=== PATIENT | male | born 1950 | race African-American/Black ===

== ENCOUNTER 2018-05-08 09:20 | Outpatient (CLI) | payer MEDICARE ==
[~2018-05-08] VITALS: Ht 172.7 cm; Wt 91.8 kg
--- NOTE | ~2018-05-08 | HEMODYNAMI ---
PATIENT:NOE MARTINEZ MEDICAL RECORD: [id number] : 50 LOCATION:[facility] ADMISSION DATE: 05/08/18 Generatedon:05/08/201811:22 Patient name: NOE MARTINEZ Patient #: [id number] SSN: D OB: 1950 Date of study: 05/08/2018 Page: Of Hemodynamic Procedure Report Patient Data Patient Demographics Procedure consent was obtained First Name: NOE Gender: Male Last Name: MICHELLE : 1950 Patient #: [id number] Age: 67 year(s) Race: Black Additional ID: [id number] Contact details Address: [address] State: [place] City: [place] Zip code: [address] Past Medical History Allergies: No known allergies Admission Admission Data Admission Date: 05/08/2018 Admission Time: 9:20 Height (in.): 68 BSA: 2.06 (m2) Height (cm.): 172.72 BMI: 31.02 (kg/m2) Weight (lbs.): 204 Weight (kg.): 92.53 Lab Results Lab Result Date: 05/08/2018 Lab Result Time: 0:00 CBC Name Units Result Min Max Hemoglobin g/dl 12.7 -*(----)-- 13.5 17.5 Procedure Procedure Types Cath Procedure Diagnostic Procedure [facility] w/Coronaries PCI Procedure Coronary Stent Coronary Stent Initial Procedure Description Procedure Date Procedure Date: 05/08/2018 Procedure Start Time: 10:54 Procedure End Time: 11:17 Procedure Staff Name Function Rich Crawford MD Performing Physician Macrina Sotelo RT Monitor Javi Cabrera RN Nurse Asia Noland RT Scrub Procedure Data Cath Procedure Fluoroscopy Diagnostic fluoroscopy Total fluoroscopy Time: 6.5 time: 6.5 min min Diagnostic fluoroscopy Total fluoroscopy dose: dose: 442.46 mGy 442.46 mGy Contrast Material Contrast Material Type Amount (ml) Isovue 300 105 Entry Location Entry Primary Successful Side Size Upsize Upsize Entry Closure Fontenot ccessful Closure Location (Fr) 1 (Fr) 2 (Fr) Remarks Device Remarks Radial Right 6 Fr Manual artery Short Compression Femoral Right 6 Fr Exoseal artery Short Estimated blood loss: 10 ml Diagnostic catheters Device Type Used For End Catheter Placement DIAGNOSTIC [place] 110cm 5 Procedure Fr catheter ([id number]) DIAGNOSTIC AR2 MOD 5 Fr Procedure catheter ([id number]) Procedure Complications No complications Procedure Medications Medication Administration Route Dosage Oxygen etCO2 Nasal cannula 2 l/min Heparin Flush Bag added to field 2 bags (1000units/500ml NS) 0.9% NaCl I.V. 100 ml/hr Radial Cocktail added to field 1 syringe (Verapomil 2mg/Nitro 400mcg/Heparin 1500units) Fentanyl I.V. 50 mcg Versed I.V. 1 mg Radial Cocktail I.A. 1 syringe (Verapomil 2mg/Nitro 400mcg/Heparin 1500units) Fentanyl I.V. 50 mcg Versed I.V. 1 mg Heparin Bolus I.V. 4000 units Integrilin (Bolus I.V. 8.5 ml 2mg/ml) Plavix P.O. 600 mg Hemodynamics Rest BSA: 2.06 (m2) HGB: 12.7 (g/dl) O2 Consumption: Estimated: 243.25 (ml/min) O2 Co nsumption indexed: Estimated:118.08 (ml/min/m) Heart Rate: 75 (bpm) Snapshots Pre Cath Intra NCS Post Cath Vital Signs Time Heart Resp SPO2 etCO2 NIBP (mmHg) Rhythm Pain Sedation Rate (ipm) (%) (mmHg) Status Level (bpm) 10:24:08 76 16 100 0 133/83(105) NSR 0 (11) 10(A) , No pain 10:28:22 81 16 100 21.2 136/78(102) NSR 0 (11) 10(A) , No pain 10:32:30 74 17 100 21.9 120/77(101) NSR 0 (11) 10(A) , No pain 10:36:40 71 17 100 30.3 106/71(84) NSR 0 (11) 10(A) , No pain 10:40:48 68 17 100 32.5 114/72(84) NSR 0 (11) 10(A) , No pain 10:45:00 69 17 100 31 109/66(84) NSR 0 (11) 10(A) , No pain 10:49:10 67 18 100 31 108/71(84) NSR 0 (11) 10(A) , No pain 10:53:17 64 17 100 31 116/69(86) NSR 0 (11) 10(A) , No pain 10:57:25 72 16 96 29.5 94/55(83) NSR 0 (11) 9(A) , No pain 11:01:37 61 14 95 10.6 64/42(56) NSR 0 (11) 9(A) , No pain 11:05:41 60 16 100 31.8 65/40(51) NSR 0 (11) 9(A) , No pain 11:09:41 60 17 97 31 75/47(62) NSR 0 (11) 9(A) , No pain 11:13:47 60 17 98 27.2 83/46(68) NSR 0 (11) 9(A) , No pain 11:17:54 59 18 98 29.5 78/47(62) NSR 0 (11) 9(A) , No pain 11:22:10 62 18 98 28.7 87/51(61) NSR 0 (11) 9(A) , No pain Medications Time Medication Route Dose Verified Delivered Reason Not es Effectiveness by by 10:29:16 Oxygen etCO2 2 l/min Rich Caldwell Per physician Nasal Ty Cabrera RN cannula 10:29:26 Heparin Flush added 2 bags Rich Caldwell used for Bag to Ty Cabrera RN procedure (1000units/500ml field NS) 10:29:35 0.9% NaCl I.V. 100 Rich Caldwell Per physician ml/hr Ty Cabrera RN 10:29:43 Radial Cocktail added 1 Rich Caldwell used for (Verapomil to syringe Ty Cabrera RN procedure 2mg/Nitro field 400mcg/Heparin 1500units) 10:53:35 Fentanyl I.V. 50 mcg Rich Caldwell for sedation Ty Cabrera RN 10:53:42 Versed I.V. 1 mg Rich Caldwell for sedation Ty Cabrera RN 10:56:04 Radial Cocktail I.A. 1 Rich mcdermott (Verapomil syringe Ty Crawford MD vasodilation 2mg/Nitro 400mcg/Heparin 1500units) 10:56:12 Fentanyl I.V. 50 mcg Rich Caldwell for sedation Ty Cabrera RN 10:56:18 Versed I.V. 1 mg Rich Caldwell for sedation Ty Cabrera RN 11:09:05 Heparin Bolus I.V. 4000 Rich Caldwell for units Ty Cabrera RN anticoagulation 11:09:18 Integrilin I.V. 8.5 ml Rich mcdermott (Bolus 2mg/ml) Ty Cabrera RN antiplatelet therapy 11:17:23 Plavix P.O. 600 mg Rich Caldwell for Ty Cabrera RN antiplatelet therapy Procedure Log Time Note 10:08:27 Javi Cabrera RN sent for patient. Start room use. 10:11:28 Time tracking: Regular hours (M-F 7:00 - 5:00) 10:11:32 Plan of Care:Hemodynamics will remain stable., Cardiac rhythm will remain stable., Comfort level will be maintained., Respiratory function will remain adequate., Patient/ family verbilizes understanding of procedure., Procedure tolerated without complication., Recovers from procedure without complications.. 10:13:15 Patient Height : 68 inches 10:13:18 Patient Weight : 204 lbs 10:13:28 Patient allergic to No known allergies 10:17:11 Patient received from Pre/Post Procedure Room to CCL 3 Alert and oriented. Tansferred to table in Supine position. 10:17:14 Warm blankets applied, and iram hugger turned on for patient comfort. 10:17:15 Correct patient and procedure confirmed by team. 10:17:16 Signed procedure consent form obtained from patient. 10:17:21 ECG and BP/O2 sat monitors applied to patient. 10:23:09 Vital chart was started 10:29:16 Oxygen 2 l/min etCO2 Nasal cannula was administered by Javi Cabrera RN; Per physician; 10:29:26 Heparin Flush Bag (1000units/500ml NS) 2 bags added to field was administered by Javi Caberra RN; used for procedure; 10:29:35 0.9% NaCl 100 ml/hr I.V. was administered by Javi Cabrera RN; Per physician; 10:29:43 Radial Cocktail (Verapomil 2mg/Nitro 400mcg/Heparin 1500units) 1 syringe added to field was administered by Javi Cabrera RN; used for procedure; 10:30:36 Baseline sample Acquired. 10:30:58 Rhythm: sinus rhythm 10:30:59 Full Disclosure recording started 10:31:21 H&P Date Dictated: 05/02/2018 Within 30 days and on chart., H&P Addendum completed by physician on day of procedure. (MUST COMPLETE FOR ALL OUTPATIENTS). 10:31:22 Pre-procedure instructions explained to patient. 10:31:22 Pre-op teaching completed and patient verbalized understanding. 10:31:24 Family in patients room. 10:31:25 Patient NPO since Midnight. 10:31:33 Is patient on blood thinner?No 10:31:34 Patient diabetic? Yes. 10:31:35 If diabetic: On Metformin? Yes 10:31:37 If on Metformin: Last Dose? 05/06/2018 10:31:40 Previous problem with sedation/anesthesia? No ? 10:31:41 Snore? No 10:31:42 Sleep apnea? No 10:31:43 Deviated septum? No 10:31:44 Opens mouth fully? Yes 10:31:45 Sticks out tongue? Yes 10:31:46 Airway obstruction? No ? 10:31:53 Dentures? No NO TEETH 10:31:56 Modified Rocky's test Ulnar < 7 seconds 10:32:01 Patient pain scale 0/10 ?. 10:32:06 IV patent on arrival in left hand with 0.9% NaCl at O. 10:32:57 Right Radial & Right Groin area was prepped with chlora-prep and draped in sterile fashion 10:33:20 Lab Result : Hemoglobin 12.7 g/dl 10:41:26 Zero performed for pressure channel P1 10:53:23 --------ALL STOP TIME OUT------ 10:53:23 Final Timeout: patient, procedure, and site verified with staff and physician. All members of the team are in agreement. 10:53:25 Right Radial & Right Groin site verified by team. 10:53:28 Physical assessment completed. ASA score P 2 - A patient with mild systemic disease as per Rich Crawford MD. 10:53:31 Sedation plan: IV Moderate Sedation Medication:Versed, Fentanyl 10:53:35 Fentanyl 50 mcg I.V. was administered by Javi Cabrera RN; for sedation; 10:53:42 Versed 1 mg I.V. was administered by Javi Cabrera RN; for sedation; 10:54:32 Procedure started. 10:54:41 Local anesthetic to right radial artery with Lidocaine 2% by Rich Crawford MD.INITIAL ACCESS ONLY 10:55:23 A 6 Fr Short sheath was inserted into the Right Radial artery 10:55:30 Use device set Radial Dx or PCI 10:55:32 ACIST Syringe (20266) opened to sterile field. 10:55:32 Bag Decanter (2002S) opened to sterile field. 10:55:34 ACIST Manifold (38181) opened to sterile field. 10:55:35 ACIST Hand Control (09217) opened to sterile field. 10:55:38 Medline Cath Pack ([id number]) opened to sterile field. 10:55:39 DIAGNOSTIC WIRE .035 260cm J wire (884623) opened to sterile field. 10:55:39 Tegaderm 4 x 4 (1626W) opened to sterile field. 10:55:41 SHEATH 6FR Slender (57-3990) opened to sterile field. 10:55:51 A DIAGNOSTIC [place] 110cm 5 Fr catheter (398137) was advanced over the wire and used for Procedure. 10:56:04 Radial Cocktail (Verapomil 2mg/Nitro 400mcg/Heparin 1500units) 1 syringe I.A. was administered by Rich Crawford MD; for vasodilation; 10:56:12 Fentanyl 50 mcg I.V. was administered by Javi Cabrera RN; for sedation; 10:56:18 Versed 1 mg I.V. was administered by Javi Cabrera RN; for sedation; 10:57:12 LV gram done using TEE 10:57:15 Injector settings: Ml/sec: 5, Volume: 15, 10:57:26 EF : 40 % 10:58:11 Catheter removed. 10:58:59 A DIAGNOSTIC AR2 MOD 5 Fr catheter ([id number]) was advanced over the wire and used for Procedure. 11:00:14 UNABLE TO ENGAGE RCA 11:00:15 Catheter removed. 11:01:32 GUIDE 6FR HS II catheter (TR0LQIY) opened to sterile field. 11:01:41 6 Fr HS2 guide catheter was inserted over the wire 11:02:06 UNABLE TO ENGAGE 11:02:09 Catheter removed. 11:02:21 WILL PROCEED TO FEMEROL APPROACH 11:02:28 SHEATH 6FR [place] (RUL886) opened to sterile field. 11:02:33 Local anesthetic to right femoral artery with Lidocaine 2% by Rich Crawford MD.ADDITIONAL ACCESS 11:03:04 A 6 Fr Short sheath was inserted into the Right Femoral artery 11:04:33 GUIDE 6FR XBLAD 3.5 catheter ([id number]) opened to sterile field. 11:04:43 6 Fr XBLAD 3.5 guide catheter was inserted over the wire 11:05:50 LCA angiography performed. 11:05:59 Guide catheter removed. 11:06:10 INFLATOR Merit BasixCompak (BA2735) opened to sterile field. 11:06:18 CHOICE PT Extra Support 182cm wire ([id number]) opened to sterile field. 11:06:40 6 Fr HS 2 guide catheter was inserted over the wire 11:07:11 RCA angiography performed. 11:07:22 Guide catheter removed. 11:07:31 GUIDE 6FR HS II SH catheter ([id number]) opened to sterile field. 11:08:01 6 Fr HS 2 SH guide catheter was inserted over the wire 11:09:05 Heparin Bolus 4000 units I.V. was administered by Javi Cabrera RN; for anticoagulation; 11:09:18 Integrilin (Bolus 2mg/ml) 8.5 ml I.V. was administered by Javi Cabrera RN; for antiplatelet therapy; 11:10:11 Inflate balloon Inflation number: 1 A EUPHORA 2.0 x 15 Balloon ([id number]) was prepped and advanced across the Prox RCA, then inflated to 11 DEN for 0:10 (min:sec). 11:10:24 Inflation number: 2 The EUPHORA 2.0 x 15 Balloon ([id number]) was reinflated across the Prox RCA, to 11 DEN for 0:10 (min:sec). 11:10:32 Inflation number: 3 The EUPHORA 2.0 x 15 Balloon ([id number]) was reinflated across the Prox RCA, to 11 DEN for 0:00 (min:sec). 11:11:04 Balloon removed over the wire. 11:12:49 Place stent Inflation Number: 4 A KOKO RX 2.0 x 15 stent ([id number]) was prepped and advanced across the Prox RCA. The stent was deployed at 13 DEN for 0:10 (min:sec). 11:13:15 Stent catheter was removed intact over wire. 11:13:15 Wire removed. 11:13:16 Guide catheter removed. 11:13:28 EXOSEAL 6Fr (EX600) opened to sterile field. 11:13:30 TR BAND Standard ([id number]) opened to sterile field. 11:13:40 Sheath removed intact; hemostasis achieved with Exoseal to the Right Femoral artery. 11:15:36 Sheath removed intact; hemostasis achieved with Manual Compression to the Right Radial artery. 11:15:39 Procedure ended.(Physican Out) 11:15:54 Fluoroscopy time 06.50 minutes. 11:16:04 Fluoroscopy dose: 442.46 mGy 11:16:04 Flurop Dose total: 442.46 11:16:07 Contrast amount:Isovue 300 105ml. 11:16:08 Sharps counted by scrub and verified by R.N. 11:16:10 TR band inflated with 10cc of air. 11:16:13 Post-op/insertion site Right Femoral artery dressed using a 4 x 4 and Tegaderm. 11:16:18 Post-procedure physical assessment completed. ASA score P 2 - A patient with mild systemic disease as per Rich Crawford MD. 11:16:22 Post procedure rhythm: sinus bradycardia 11:16:24 Estimated blood loss: 10 ml 11:16:25 Post procedure instruction explained to patient.Patient verbalizes understanding. 11:16:26 Patient needs reinforcement of post procedure teaching. 11:16:42 Procedure type changed to Cath procedure, Diagnostic procedure, LHC, LHC w/Coronaries, PCI procedure, Coronary Stent, Coronary Stent Initial 11:17:16 Procedure and supply charges have been captured, reviewed, submitted and are correct. 11:17:17 Procedure Complication : No complications 11:17:20 Vital chart was stopped 11:17:20 See physician's report for complete and final results. 11:17:22 Report given to Pre/Post Procedure Room. 11:: Plavix 600 mg P.O. was administered by Javi Cabrera RN; for antiplatelet therapy; 11:17:24 Patient transfered to Pre/Post Procedure Room with Bed. :: Procedure ended. Full Disclosure recording stopped 11::31 End room use (Document Last) Intervention Summary Intervention Notes Time ActionType Lesion and Equipment Used Action# Pressure Duration Attributes 11:10:11 Inflate Prox RCA EUPHORA 2.0 x 1 11 00:10 balloon 15 Balloon ([id number]) 11:10:24 Reinflate Prox RCA EUPHORA 2.0 x 2 11 00:10 balloon 15 Balloon ([id number]) 11:10:32 Reinflate Prox RCA EUPHORA 2.0 x 3 11 00:00 balloon 15 Balloon ([id number]) 11:12:49 Place stent Prox RCA KOKO RX 2.0 x 4 13 00:10 15 stent ([id number]) Device Usage Item Name Manufacture Quantity Catalog Number Hospital Part Current M inimal Lot# / Charge Number Stock Stock Serial# Code ACIST Syringe Acist 1 38660 740222 614561 490063 2 0 (77044) Medical Systems Inc Bag Decanter Microtek 1 2001S 535257 37349 712714 5 (2001S) Medical Inc. ACIST Manifold Acist 1 01602 975359 519354 784762 5 (76212) Medical Systems Inc ACIST Hand Acist 1 50175 255880 269536 791252 5 Control Medical (03978) Systems Inc Medline Cath Medline 1 [id number] 280397 46695 880680 5 Pack ([id number]) DIAGNOSTIC [facility] Daniel 1 175098 987998 789912 294798 3 0 WIRE .035 260cm J wire (909569) Tegaderm 4 x 4 3M 1 1626W 442689 578870 027989 5 (1626W) SHEATH 6FR Terumo 1 [id number] 649685 203339 788038 5 Slender (80-1060) DIAGNOSTIC Terumo 1 40-3548 033996 413926 515338 5 [place] 110cm 5 Fr catheter (351851) DIAGNOSTIC AR2 Cardinal 1 [id number] 955272 287981 629992 2 0 MOD 5 Fr Health catheter (117198D) GUIDE 6FR HS Medtronic 1 KN2XELQ 181708 14329 094804 1 II catheter ([id number]) SHEATH 6FR Terumo 1 EBQ302 739300 045574 057534 4 0 Tomball (GSG198) GUIDE 6FR Cardinal 1 [id number] 844961 682961 931201 1 0 XBLAD 3.5 Health catheter (78258730) INFLATOR Merit Merit 1 PC3064 249826 462791 988645 1 5 HLH ELECTRONICSctErly (ZP1456) CHOICE PT [place] 1 [id number] 196570 475292 174971 5 Extra Support Scientific 182cm wire ([id number]) GUIDE 6FR HS Medtronic 1 [id number] 972246 36578 757571 1 II SH catheter ([id number]) EUPHORA 2.0 x Medtronic 1 [id number] 272874 713448 576792 5 [id number] 15 Balloon (SRY8878V) KOKO RX 2.0 x Medtronic 1 [id number] 178332 2642751 305825 5 [id number] 15 stent ([id number]) EXOSEAL 6Fr Cardinal 1 EX600 637416 657091 026749 1 0 (EX600) Health TR BAND Terumo 1 [id number] 317800 376542 638619 4 0 Standard ([id number]) Signature Audit Thornton Stage Time Signature Unsigned Intra-Procedure 05/08/2018 Macrina Sotelo 11:22:33 AM RT(R) Signatures Monitor : Macrina Sotelo Signature : RT Date : Time : [facility] [address] [place] [address]
--- NOTE | ~2018-05-08 | OP ---
PATIENT NAME: NOE MARTINEZ MEDICAL RECORD: [id number] :50 LOCATION:[facility] ADMISSION DATE: SURGEON: JOSH SEYMOUR MD DATE OF OPERATION: 05/08/2018 PROCEDURES: 1. PTCA stent RCA. 2. Left heart catheterization. 3. Selective coronary angiography. 4. Left ventriculogram. INDICATION: Angina and coronary artery disease. PROCEDURE IN DETAIL: After informed consent was obtained and after a detailed description of risks, benefits as well as alternative therapies, the patient elected to proceed with angiogram and angioplasty. The right femoral area was prepped and draped in normal sterile fashion. Right femoral artery was cannulated via modified Seldinger technique with placement of 6-[place] sheath. All catheters exchanged through this sheath. FINDINGS: The left ventriculogram was performed in standard 30-degree TEE view, reveals global hypokinesis throughout all segments. Overall ejection fraction in the 35% to 40% range. SELECTIVE CORONARY ANGIOGRAPHY: 1. Left main has no significant angiographic disease. 2. Left anterior descending has 90% stenosis in the mid distal vessel. 3. Left circumflex has moderate irregularities, but no flow-limiting stenosis. 4. The right coronary artery has 99% stenosis in the mid vessel. PTCA STENT OF THE RCA: The stent used was a 2.0 x 15 mm Jose Manuel. Result was 0% residual stenosis. OVERALL IMPRESSION: Successful percutaneous transluminal coronary angioplasty stent of the right coronary artery going from 99% initial stenosis to 0% residual. PLAN: For PTCA stent of the LAD in the near future. TRANSINT:[id number] Voice Confirmation ID: [id number] DOCUMENT ID: [id number] JOSH SEYMOUR MD at 1228 CC: [id number] DICTATION DATE: 05/08/18 1119 FACTORER: 05/08/18 1150 DEP CLI 05/08/18 [place] [address]
[2018-05-08] MEDS ORDERED: NORCO 7.5/325 T1 TA1 PO (09:40)
[2018-05-08] MEDS ORDERED: AMOXICILLIN875 MG PO (09:40)
[2018-05-08] MEDS ORDERED: METFORMIN HCL500 M1 PO (09:44)
[2018-05-08] MEDS ORDERED: COZAAR100 MG PO (09:46)
[2018-05-08] MEDS ORDERED: GLIMEPIRIDE2 MG PO (09:46)
[2018-05-08] MEDS ORDERED: HYDROCHLOROTHIA25 MG PO (09:47)
[2018-05-08] MEDS ORDERED: NORVASC10 MG PO (09:48)
[2018-05-08 09:54] VITALS: BP 141/73; Ht 172.7 cm; Wt 91.8 kg
[2018-05-08 10:18] LABS: BASOPHILS 0.5 % (0-2); EOSINOPHILS 2.6 % (0-7); HEMATOCRIT 38.1 % (42.0-54.0); HEMOGLOBIN 12.7 g/dL (13.5-17.5); IMMATURE GRANULOCYTES 0.2 % (0-5); LYMPHOCYTES 33.3 % (15-50); MCH 26.1 pg (26.0-34.0); MCHC 33.3 g/dL (31.0-37.0); MCV 78.4 fL (80.0-100.0); MEAN PLATELET VOLUME 9.9 fL (7.4-10.4); MONOCYTES 9.3 % (2-11); NEUTROPHILS 54.1 % (40-80); PLATELET COUNT 361 10x3/uL (130-400); RBC 4.86 10x6/uL (4.20-6.10); RDW 14.7 % (11.5-14.5); WBC 5.5 10x3/uL (4.8-10.8)
[2018-05-08 10:33] LABS: ANION GAP 13.6 mmol/L (8-16); CALCIUM 9.1 mg/dL (8.5-10.1); CARBON DIOXIDE 26.3 mmol/L (21.0-32.0); CREATININE - SERUM 2.2 mg/dL (0.6-1.3); POTASSIUM - SERUM 3.9 mmol/L (3.5-5.1)
[2018-05-08] MEDS ORDERED: PLAVIX75 MG PO (11:36)
[2018-05-08] MEDS ORDERED: BAYER CHEWABLE81 MG PO (11:36)
== END 2018-05-08 15:35 | disposition home or self-care (01) ==
LOC: D.CATH 09:20 → EDBD 09:20 → D.CATH 11:00
PROVIDERS: Internal Medicine Interventional Cardiology
DX: I25.119 Atherosclerotic heart disease of native coronary artery with unspecified angina pectoris (principal); Z01.812 Encounter for preprocedural laboratory examination
CPT/HCPCS: 93458; C9600

== ENCOUNTER 2018-05-12 09:04 | Outpatient (CLI) | payer MEDICARE ==
[~2018-05-12] VITALS: Ht 172.7 cm; Wt 91.8 kg
--- NOTE | ~2018-05-12 | HP ---
PATIENT: NOE MARTINEZ MEDICAL RECORD: [id number] ACCOUNT: [id number] LOCATION:[facility] : 50 ADMISSION DATE: 05/12/18 PCP: MARTIN WANG MD HISTORY AND PHYSICAL EXAMINATION ADMITTING DIAGNOSES: 1. Angina. 2. Coronary artery disease. 3. Recent PTCA and stent of the RCA with concomitant disease of LAD. HISTORY OF PRESENT ILLNESS: Mr. Martinez presents with anginal symptomatology, found to have 2-vessel disease. Underwent successful PTCA and stent of the RCA. He is now brought back for PTCA and stent of the LAD. PHYSICAL EXAMINATION: GENERAL APPEARANCE: Well-nourished, well-developed, appears stated age. Level of distress, comfortable. PSYCHIATRIC: Mental status, alert, normal affect. Orientation, oriented to time, place and person. EYES: Lids and conjunctiva, noninjected. No discharge, no pallor. ENT: Lips, teeth, gums, normal dentition. Oropharynx, no cyanosis, no pallor. NECK: Carotid arteries, bilateral normal upstroke, no bruits, no thrills. JUGULAR VEINS: No jugular venous pressure or distention. CERVICAL LYMPH NODES: Nontender, nonenlarged. THYROID: Not enlarged. Nontender. No nodules. LUNGS: Respiratory effort, unlabored. CHEST: Normal curvature. No thoracic deformity. No chest wall tenderness. Percussion, resonant. Auscultation, clear. No wheezes, no rales, no rhonchi. CARDIOVASCULAR: Precordial exam, nondisplaced. No heaves or pericardial thrills. Rate and rhythm, regular. Heart sounds, normal S1, normal S2. No S3, no gallop, no rub. Systolic murmur, not heard. Diastolic murmur, not heard. EXTREMITIES: No cyanosis, no edema. Peripheral pulses, full and equal in all extremities, except as noted. No bruits appreciated. ABDOMEN: Soft, nondistended. Normal aorta. No bruit. Nontender. No masses. Liver, nontender, no hepatomegaly. Spleen, nontender, no splenomegaly. MUSCULOSKELETAL: No joint tenderness. No joint swelling. No erythema. NEUROLOGICAL: Normal gait, normal strength, normal tone. SKIN: Warm and dry. OVERALL IMPRESSION: Anginal symptomatology with significant disease of the LAD. We will proceed with transcatheter revascularization of the LAD. TRANSINT:[id number] Voice Confirmation ID: [id number] DOCUMENT ID: [id number] JOSH SEYMOUR MD at 0941 CC: [id number] DICTATION DATE: 05/12/18917 SUPERVISOR STAGE CARPENTRY: 05/12/18 09 REG [facility] [address] [place] [id number]
--- NOTE | ~2018-05-12 | HEMODYNAMI ---
PATIENT:NOE MARTINEZ MEDICAL RECORD: [id number] : 50 LOCATION:DPATRICIA ADMISSION DATE: 05/12/18 Generatedon:05/12/201812:56 Patient name: NOE MARTINEZ Patient #: [id number] SSN: D OB: 1950 Date of study: 05/12/2018 Page: Of Hemodynamic Procedure Report Patient Data Patient Demographics Procedure consent was obtained First Name: NOE Gender: Male Last Name: MICHELLE : 1950 Patient #: [id number] Age: 67 year(s) Race: Black Additional ID: [id number] Contact details Address: [address] State: [place] City: [place] Zip code: [address] Past Medical History Allergies: No known allergies Admission Admission Data Admission Date: 05/12/2018 Admission Time: 9:04 Lab Results Lab Result Date: 05/08/2018 Lab Result Time: 0:00 CBC Name Units Result Min Max Hemoglobin g/dl 12.7 -*(----)-- 13.5 17.5 Procedure Procedure Types Cath Procedure PCI Procedure Coronary Stent Coronary Stent Initial Procedure Description Procedure Date Procedure Date: 05/12/2018 Procedure Start Time: 12:40 Procedure End Time: 12:53 Procedure Staff Name Function Rich Crawford MD Performing Physician Peter Mederos RT Monitor Javi Cabrera RN Nurse Romero Cedeño RT Scrub Procedure Data Cath Procedure Fluoroscopy Diagnostic fluoroscopy Total fluoroscopy Time: 2.4 time: 2.4 min min Diagnostic fluoroscopy Total fluoroscopy dose: 182 dose: 182 mGy mGy Contrast Material Contrast Material Type Amount (ml) Isovue 300 73 Entry Location Entry Primary Successful Side Size Upsize Upsize Entry Closure Succes sful Closure Location (Fr) 1 (Fr) 2 (Fr) Remarks Device Remarks Femoral Right 6 Fr Exoseal artery Short Estimated blood loss: 10 ml Procedure Complications No complications Procedure Medications Medication Administration Route Dosage Oxygen etCO2 Nasal cannula 2 l/min Heparin Flush Bag added to field 2 bags (1000units/500ml NS) 0.9% NaCl I.V. 100 ml/hr Fentanyl I.V. 50 mcg Versed I.V. 1 mg Fentanyl I.V. 50 mcg Versed I.V. 1 mg Heparin Bolus I.V. 4000 units Hemodynamics Rest HGB: 12.7 (g/dl) Heart Rate: 58 (bpm) Snapshots Pre Cath Intra NCS Post Cath Vital Signs Time Heart Resp SPO2 etCO2 NIBP (mmHg) Rhythm Pain Sedation Rate (ipm) (%) (mmHg) Status Level (bpm) 12:27:18 75 16 100 0 138/92(127) NSR 0 (11) 10(A) , No pain 12:31:36 69 16 98 0 147/81(120) NSR 0 (11) 10(A) , No pain 12:35:52 61 16 100 11.2 128/75(109) NSR 0 (11) 10(A) , No pain 12:40:10 66 17 100 2.2 116/74(88) NSR 0 (11) 9(A) , No pain 12:44:22 63 16 100 11.1 121/78(108) NSR 0 (11) 9(A) , No pain 12:48:38 67 17 100 11.1 129/72(104) NSR 0 (11) 9(A) , No pain 12:52:52 64 15 100 7.4 127/76(96) NSR 0 (11) 9(A) , No pain Medications Time Medication Route Dose Verified Delivered Reason Notes Effectiveness by by 12:30:43 Oxygen etCO2 2 Rich Caldwell Per physician Nasal l/min Ty Cabrera RN cannula 12:30:51 Heparin Flush added 2 Rich Caldwell used for Bag to bags Ty Cabrera RN procedure (1000units/500ml field NS) 12:31:01 0.9% NaCl I.V. 100 Rich Caldwell Per physician ml/hr Ty Cabrera RN 12:35:47 Fentanyl I.V. 50 Rich Caldwell for sedation mcg Ty Cabrera RN 12:35:54 Versed I.V. 1 mg Rich Caldwell for sedation Ty Cabrera RN 12:39:29 Fentanyl I.V. 50 Rich Caldwell for sedation mcg Ty Cabrera RN 12:39:33 Versed I.V. 1 mg Rich mcdermott sedation Ty Cabrera RN 12:42:25 Heparin Bolus I.V. 4000 Rich Caldwell for units Ty Cabrera RN anticoagulation Procedure Log Time Note 12:00:10 Peter Mederos RT(R) sent for patient. Start room use. 12:06:11 Time tracking: Regular hours (M-F 7:00 - 5:00) 12:06:15 Plan of Care:Hemodynamics will remain stable., Cardiac rhythm will remain stable., Comfort level will be maintained., Respiratory function will remain adequate., Patient/ family verbilizes understanding of procedure., Procedure tolerated without complication., Recovers from procedure without complications.. 12:08:12 Procedure type changed to Cath procedure, PCI procedure, Coronary Stent, Coronary Stent Initial 12:20:04 Patient received from Pre/Post Procedure Room to CCL 3 Alert and oriented. Tansferred to table in Supine position. 12:20:05 Correct patient and procedure confirmed by team. 12:20:05 Warm blankets applied, and iram hugger turned on for patient comfort. 12:20:07 ECG and BP/O2 sat monitors applied to patient. 12:20:07 Signed procedure consent form obtained from patient. 12:26:08 Vital chart was started 12:30:43 Oxygen 2 l/min etCO2 Nasal cannula was administered by Javi Cabrera RN; Per physician; 12:30:51 Heparin Flush Bag (1000units/500ml NS) 2 bags added to field was administered by Javi Cabrera RN; used for procedure; 12:31:01 0.9% NaCl 100 ml/hr I.V. was administered by Javi Cabrera RN; Per physician; 12:34:02 Baseline sample Acquired. 12:34:05 Rhythm: sinus bradycardia 12:34:07 Full Disclosure recording started 12:34:11 H&P Date Dictated: 05/12/2018 New H&P dictated by physician.. 12:34:11 Pre-procedure instructions explained to patient. 12:34:12 Pre-op teaching completed and patient verbalized understanding. 12:34:13 Family in patients room. 12:34:14 Patient NPO since Midnight. 12:34:16 Is the patient allergic to Iodine/contrast media? No. 12:34:18 Is patient on blood thinner?Yes 12:34:20 ACC The patient was administered the following blood thiners within the last 24 hours: ACCPlavix 12:34:22 Patient diabetic? Yes. 12:34:49 If diabetic: On Metformin? Yes 12:34:54 If on Metformin: Last Dose? 05/01/2018 12:34:56 Previous problem with sedation/anesthesia? No ? 12:34:57 Snore? Yes 12:34:59 Sleep apnea? No 12:35:00 Deviated septum? No 12:35:01 Opens mouth fully? Yes 12:35:01 Sticks out tongue? Yes 12:35:08 Airway obstruction? No ? 12:35:14 Dentures? No no teeth 12:35:17 Pre procedure: right dorsailis pedis pulse 1+ Palpable, but thready & weak; easily obliterated 12:35:20 Patient pain scale 0/10 ?. 12:35:24 IV patent on arrival in left forearm with 0.9% NaCl at O. 12:35:26 Lab results completed and on chart. 12:35:29 Right groin area was prepped with chlora-prep and draped in sterile fashion 12:35:30 Alarms reviewed by R. N. 12:35:30 Sharps counted by scrub and verified by R.N. 12:35:31 --------ALL STOP TIME OUT------ 12:35:35 Final Timeout: patient, procedure, and site verified with staff and physician. All members of the team are in agreement. 12:35:38 Right groin site verified by team. 12:35:40 Physical assessment completed. ASA score P 2 - A patient with mild systemic disease as per Rich Crawford MD. 12:35:43 Sedation plan: IV Moderate Sedation Medication:Versed, Fentanyl 12:35:47 Fentanyl 50 mcg I.V. was administered by Javi Cabrera RN; for sedation; 12:35:54 Versed 1 mg I.V. was administered by Javi Cabrera RN; for sedation; 12:36:45 Use device set Radial Dx or PCI 12:36:48 Use device set TAUTH PCI 12:36:52 Tegaderm 4 x 4 (1626W) opened to sterile field. 12:36:53 ACIST Manifold (64428) opened to sterile field. 12:36:54 ACIST Hand Control (04142) opened to sterile field. 12:36:59 ACIST Syringe (14019) opened to sterile field. 12:36:59 Medline Cath Pack ([id number]) opened to sterile field. 12:37:01 Bag Decanter (2002S) opened to sterile field. 12:37:01 DIAGNOSTIC WIRE .035 260cm J wire (039994) opened to sterile field. 12:37:04 INFLATOR Merit BasixCompak (OZ2286) opened to sterile field. 12:37:06 CHOICE PT Extra Support 182cm wire ([id number]) opened to sterile field. 12:37:08 GUIDE 6FR XBLAD 3.5 catheter ([id number]) opened to sterile field. 12:37:11 SHEATH 6FR Huntley (WFD489) opened to sterile field. 12:39:29 Fentanyl 50 mcg I.V. was administered by Javi Cabrera RN; for sedation; 12:39:33 Versed 1 mg I.V. was administered by Javi Cabrera RN; for sedation; 12:40:23 Procedure started. 12:40:26 Local anesthetic to right femoral artery with Lidocaine 2% by Rich Crawford MD.INITIAL ACCESS ONLY 12:41:12 Zero performed for pressure channel P1 12:41:15 Zero performed for pressure channel P1 12:41:17 Zero performed for pressure channel P1 12:41:20 Zero performed for pressure channel P1 12:42:08 A 6 Fr Short sheath was inserted into the Right Femoral artery 12:42:25 Heparin Bolus 4000 units I.V. was administered by Javi Cabrera RN; for anticoagulation; 12:42:39 6 Fr XBLAD 3.5 guide catheter was inserted over the wire 12:42:59 CPTXS wire advanced. 12:43:08 Wire advanced across lesion. 12:44:41 Place stent Inflation Number: 1 A KOKO RX 2.5 x 12 stent ([id number]) was prepped and advanced across the Dist LAD. The stent was deployed at 11 DEN for 0:10 (min:sec). 12:44:59 Stent catheter was removed intact over wire. 12:46:07 Place stent Inflation Number: 1 A KOKO RX 3.0 x 15 stent ([id number]) was prepped and advanced across the Mid LAD. The stent was deployed at 13 DEN for 0:10 (min:sec). 12:47:08 Stent catheter was removed intact over wire. 12:47:09 Wire removed. 12:47:10 Guide catheter removed. 12:47:13 EXOSEAL 6Fr (EX600) opened to sterile field. 12:47:31 Sheath removed intact; hemostasis achieved with Exoseal to the Right Femoral artery. 12:47:33 Procedure ended.(Physican Out) 12:51:48 Fluoroscopy time 02.40 minutes. 12:51:53 Fluoroscopy dose: 182 mGy 12:51:53 Flurop Dose total: 182 12:51:58 Contrast amount:Isovue 300 73ml. 12:52:00 Sharps counted by scrub and verified by R.N. 12:52:02 Insertion/operative site no bleeding no hematoma. 12:52:05 Post-op/insertion site Right Femoral artery dressed using a 4 x 4 and Tegaderm. 12:52:06 Post Procedure Pulses reassessed and unchanged 12:52:09 Post-procedure physical assessment completed. ASA score P 2 - A patient with mild systemic disease as per Rich Crawford MD. 12:52:11 Post procedure rhythm: unchanged. 12:52:14 Estimated blood loss: 10 ml 12:52:15 Post procedure instruction explained to patient.Patient verbalizes understanding. 12:52:15 Patient needs reinforcement of post procedure teaching. 12:52:20 Procedure and supply charges have been captured, reviewed, submitted and are correct. 12:52:23 Procedure Complication : No complications 12:52:42 Vital chart was stopped 12:52:43 See physician's report for complete and final results. 12:52:47 Report given to Pre/Post Procedure Room. 12:52:50 Patient transfered to Pre/Post Procedure Room with Stretcher. 12:53:00 Procedure ended. 12:53:00 Full Disclosure recording stopped 12:54:22 End room use (Document Last) Intervention Summary Intervention Notes Time ActionType Lesion and Equipment Used Action# Pressure Duration Attributes 12:44:41 Place stent Dist LAD KOKO RX 2.5 x 1 11 00:10 12 stent ([id number]) 12:46:07 Place stent Mid LAD KOKO RX 3.0 x 1 13 00:10 15 stent ([id number]) Device Usage Item Name Manufacture Quantity Catalog Number Hospital Part Current M inimal Lot# / Charge Number Stock Stock Serial# Code Tegaderm 4 x 4 3M 1 1626W [id number] 372039 914226 5 (1626W) ACIST Manifold Acist 1 15931 939379 730929 887691 5 (06650) Medical Systems Inc ACIST Hand Acist 1 45313 249726 177745 146105 5 Control Medical (03551) Systems Inc ACIST Syringe Acist 1 63549 162531 907741 344413 2 0 (48771) Medical Systems Inc Medline Cath Medline 1 [id number] 512781 19304 578368 5 Pack ([id number]) Bag Decanter Microtek 1 2001S 068391 63091 685635 5 (2001S) Medical Inc. DIAGNOSTIC St Daniel 1 389017 758637 682329 673379 3 0 WIRE .035 260cm J wire (802172) INFLATOR Merit Merit 1 EU7493 031305 756250 829200 1 5 maniaTV Medical (BU9255) CHOICE PT [place] 1 [id number] 988817 180956 628569 5 Extra Support Scientific 182cm wire ([id number]) GUIDE 6FR Cardinal 1 [id number] 251841 574408 476000 1 0 XBLAD 3.5 Health catheter (10770668) SHEATH 6FR Terumo 1 KFY732 547022 853955 544984 4 0 Huntley (OXQ436) KOKO RX 2.5 x Medtronic 1 [id number] 555866 0274494 564241 5 [id number] 12 stent ([id number]) KOKO RX 3.0 x Medtronic 1 [id number] 925858 5234073 899398 5 [id number] 15 stent ([id number]) EXOSEAL 6Fr Cardinal 1 EX600 673839 648108 366872 1 0 (EX600) Health Signature Audit [place] Stage Time Signature Unsigned Intra-Procedure 05/12/2018 Peter Mederos 12:56:11 PM RT(R) Signatures Monitor : Peter Mederos RT Signature : Date : Time : [address] [place] [address]
--- NOTE | ~2018-05-12 | OP ---
PATIENT NAME: NOE MARTINEZ MEDICAL RECORD: [id number] :50 LOCATION:D.CAT ADMISSION DATE: SURGEON: JOSH SEYMOUR MD DATE OF OPERATION: 05/12/2018 DATE OF SERVICE: 05/12/2018 PROCEDURES: 1. PTCA stent LAD. 2. Selective coronary angiography. INDICATION: Angina and coronary artery disease. PROCEDURE IN DETAIL: After informed consent was obtained and after a detailed description of risks, benefits as well as alternative therapies, the patient elected to proceed with angiogram and heart catheterization. The right femoral area was prepped and draped in normal sterile fashion. Right femoral artery was cannulated via modified Seldinger technique with placement of 6-Upper Sorbian sheath. All catheters exchanged through this sheath. FINDINGS: The left anterior descending has 2 areas of 80+ percent stenosis addressed with a 3.0 x 15 and 2.5 x 12 both Jose Manuel stents. Result was 0% residual stenosis. OVERALL IMPRESSION: Successful percutaneous transluminal coronary angioplasty stent of the left anterior descending going from 80% initial stenosis times 2 to 0% residual. TRANSINT:[id number] Voice Confirmation ID: [id number] DOCUMENT ID: [id number] JOSH SEYMOUR MD at 1324 CC: [id number] DICTATION DATE: 05/12/18 1259 COTTON TIER: 05/12/18 1506 DEP CLI 05/12/[address] [address]
[~2018-05-12 09:04] MED LIST: AMOXICILLIN875 MG PO; BAYER CHEWABLE81 MG PO; COZAAR100 MG PO; GLIMEPIRIDE2 MG PO; HYDROCHLOROTHIA25 MG PO; METFORMIN HCL500 M1 PO; NORCO 7.5/325 T1 TA1 PO; NORVASC10 MG PO; PLAVIX75 MG PO
[2018-05-12] MEDS ORDERED: BAYER CHEWABLE81 MG PO (09:51)
[2018-05-12 09:55] VITALS: BP 139/82; Ht 172.7 cm; Wt 91.8 kg
[2018-05-12 10:07] LABS: BASOPHILS 0.5 % (0-2); EOSINOPHILS 2.9 % (0-7); HEMOGLOBIN 12.3 g/dL (13.5-17.5); IMMATURE GRANULOCYTES 0.2 % (0-5); MCH 26.1 pg (26.0-34.0); MCHC 33.2 g/dL (31.0-37.0); MCV 78.6 fL (80.0-100.0); MONOCYTES 7.9 % (2-11); NEUTROPHILS 57.5 % (40-80); PLATELET COUNT 334 10x3/uL (130-400); RBC 4.71 10x6/uL (4.20-6.10); RDW 14.7 % (11.5-14.5); WBC 6.3 10x3/uL (4.8-10.8)
[2018-05-12 10:13] LABS: ANION GAP 15.8 mmol/L (8-16); CALCIUM 9.2 mg/dL (8.5-10.1); CREATININE - SERUM 1.8 mg/dL (0.6-1.3); POTASSIUM - SERUM 3.8 mmol/L (3.5-5.1)
== END 2018-05-12 17:00 | disposition home or self-care (01) ==
LOC: D.CATH 09:04 → EDBD 09:04 → D.CATH 11:00
PROVIDERS: Internal Medicine Interventional Cardiology
DX: I25.119 Atherosclerotic heart disease of native coronary artery with unspecified angina pectoris (principal); Z95.5 Presence of coronary angioplasty implant and graft; Z01.812 Encounter for preprocedural laboratory examination

== ENCOUNTER → 2018-09-04 13:13 | Outpatient (CLI) | payer MEDICARE ==
[2018-05-12 09:55] VITALS: BMI 30.7
--- NOTE | 2018-09-08 15:12 | EC ---
PATIENT:NOE MARTINEZ DATE OF SERVICE: 09/04/18 SEX: M MEDICAL RECORD: [id number] DATE OF : [birth year] [facility] AGE OF PATIENT: 68 ADMISSION DATE: 09/04/18 REFERRING PHYSICIAN: INTERPRETING PHYSICIAN: JOSH CRAWFORD MD ECHOCARDIOGRAM REPORT ECHO CHARGES 4 ECHO COMPLETE Date: 09/04/18 CLINICAL DIAGNOSIS: CAD/ ASSESS EF ECHOCARDIOGRAPHIC MEASUREMENTS (adult normal given) AC root (d.<3.7cm) 2.9 cm LV Septum d (<1.2 cm> 1.5 cm Valve Excursion 2.3 cm LV Septum (systole) 1.7 cm Left Atria (s.<4.0cm> 4.2 cm LVPW d(<1.2cm) 1.8 cm RV (d.<2.3cm) 2.9 cm LVPW (sytole) 1.9 cm LV diastole(<5.6CM) 5.7 cm MV E-F(>70mm/sec) cm LV systole 4.7 cm LVOT Diameter 2.3 cm MV exc.(>10mm) 1.9 cm Est.ejection fraction (50-75%) % DOPPLER: LVIT cm/sec A 91.0 cm/sec E 57.0 cm/sec LA cm/sec RVSP 21 mmHg LVOT 81 cm/sec AOP1/2T m/s Asc. Ao 143 cm/sec RVOT 93 cm/sec RA cm/sec PA 109 cm/sec AV Gradient Peak 8.14 mmHg AV Mean 3.89 mmHg AV Area 2.4 cm MV Gradient Peak 6.35 mmHg MV Mean 1.26 mmHg MV Area cm COMMENTS: Staff Mine Warfare Officer: Sherrie CAGLE Environmental Compliance Manager: 1 Dr. Crawford TAPE# PACS Pericardial Effusion N DATE OF SERVICE: 09/04/2018 PROCEDURE: Echocardiogram. FINDINGS: 1. Left ventricular chamber size is mildly dilated. Left ventricular systolic function is moderately reduced, overall ejection fraction in the 30% to 35% range. 2. Left atrium is enlarged at 4.2 cm. Right atrium and right ventricular chamber sizes are within normal limits. ECHOCARDIOGRAM REPORT [id number] NOE MARTINEZ 3. Valvular structures have normal structure and motion. 4. Doppler interrogation reveals mild mitral regurgitation, no other valvular insufficiency or stenosis. Pulmonary systolic pressure is estimated at 21 mmHg. 5. No evidence of pericardial effusion or left ventricular thrombus. TRANSINT:[id number] Voice Confirmation ID: [id number] DOCUMENT ID: [id number] JOSH CRAWFORD MD at 1512 CC: [id number] DICTATION DATE: 09/06/18 1124 JOURNEYMAN WELDER: 09/06/18 1232 DEP CLI 09/04/18 [address] [place] [address]
== END | disposition home or self-care (01) ==
LOC: D.HCCARDIO 13:00
PROVIDERS: ATTEND Internal Medicine Interventional Cardiology
DX: I25.10 Atherosclerotic heart disease of native coronary artery without angina pectoris (principal)

== ENCOUNTER 2019-02-01 12:23 | Emergency (ER) | payer MEDICARE ==
[~2019-02-01] VITALS: Ht 172.7 cm; Wt 78.3 kg
[2019-02-01 12:44] VITALS: Ht 172.7 cm; Wt 78.3 kg
[2019-02-01] MEDS ORDERED: DULCOLAX STOOL100 MG PO (12:48)
[2019-02-01] MEDS ORDERED: FUROSEMIDE20 MG PO ×2 (12:48→18:00)
[2019-02-01] MEDS ORDERED: COZAAR25 MG PO (12:49)
[2019-02-01] MEDS ORDERED: CHRONULAC30 ML PO (12:49)
[2019-02-01] MEDS ORDERED: TOPROL XL25 MG PO (12:51)
[2019-02-01 13:48] LABS: BASOPHILS 1.1 % (0-2); EOSINOPHILS 2.5 % (0-7); HEMOGLOBIN 12.4 g/dL (13.5-17.5); IMMATURE GRANULOCYTES 0.2 % (0-5); LYMPHOCYTES 20.6 % (15-50); MCH 25.3 pg (26.0-34.0); MCHC 32.6 g/dL (31.0-37.0); MCV 77.6 fL (80.0-100.0); MEAN PLATELET VOLUME 10.3 fL (7.4-10.4); MONOCYTES 8.7 % (2-11); NEUTROPHILS 66.9 % (40-80); PLATELET COUNT 289 10x3/uL (130-400); RDW 15.2 % (11.5-14.5); WBC 5.3 10x3/uL (4.8-10.8)
[2019-02-01 14:01] LABS: APTT 33.3 SECONDS (22.8-39.4); INR 1.11 (0.85-1.17); PROTIME 13.8 SECONDS (11.6-15.0)
[2019-02-01 14:04] LABS: ALBUMIN 3.5 g/dL (3.4-5.0); ALKALINE PHOSPHATASE 87 U/L (46-116); ALT (SGPT) 40 U/L (10-68); BILIRUBIN - TOTAL 0.71 mg/dL (0.2-1.3); CALC OSMOLALITY 283 mosm/kg (275-300); CALCIUM 9.2 mg/dL (8.5-10.1); CARBON DIOXIDE 24.4 mmol/L (21.0-32.0); CHLORIDE - SERUM 108 mmol/L (98-107); GLUCOSE 88 mg/dL (74-106); POTASSIUM - SERUM 4.2 mmol/L (3.5-5.1); PROTEIN - SERUM 6.9 g/dL (6.4-8.2); SODIUM 142 mmol/L (136-145); UREA NITROGEN 18 mg/dL (7-18); eGFR NON AFRICAN AMERICAN 35 mL/min (90-120)
[2019-02-01 14:16] LABS: CKMB 1.3 U/L (0.0-3.6); CREATINE KINASE 170 UL (21-232); PRO BNP 7896 pg/mL (0-125); TROPONIN-I 0.055 ng/mL (0.000-0.060)
[2019-02-01 18:15] VITALS: BP 150/88
== END 2019-02-01 18:18 | disposition home or self-care (01) ==
LOC: D.ER 12:23
PROVIDERS: Family Medicine
DX: R06.02 Shortness of breath (principal); I50.9 Heart failure, unspecified; Z91.14 Patient's other noncompliance with medication regimen

== ENCOUNTER 2019-03-05 21:25 | Inpatient (IN) | payer MEDICARE, MEDICAID ==
[~2019-03-05] VITALS: Ht 172.7 cm; Wt 73.6 kg
[~2019-03-05 21:25] MED LIST changes: +CHRONULAC30 ML PO; +COZAAR25 MG PO; +DULCOLAX STOOL100 MG PO; +FUROSEMIDE20 MG PO; +TOPROL XL25 MG PO
[2019-03-06 01:16] VITALS: BP 159/94; BMI 27.2
[2019-03-06 04:30] VITALS: BP 154/107
[2019-03-06 06:22] LABS: BASOPHILS 0 % (0-2); EOSINOPHILS 0 % (0-7); HEMATOCRIT 37.4 % (42.0-54.0); HEMOGLOBIN 11.9 g/dL (13.5-17.5); IMMATURE GRANULOCYTES 0.3 % (0-5); LYMPHOCYTES 11.1 % (15-50); MCH 24.4 pg (26.0-34.0); MCHC 31.8 g/dL (31.0-37.0); MCV 76.6 fL (80.0-100.0); MEAN PLATELET VOLUME 11.1 fL (7.4-10.4); MONOCYTES 1.8 % (2-11); NEUTROPHILS 86.8 % (40-80); RBC 4.88 10x6/uL (4.20-6.10); RDW 15.4 % (11.5-14.5); WBC 3.9 10x3/uL (4.8-10.8)
[2019-03-06 06:40] LABS: PLATELET COUNT 363 10x3/uL (130-400)
--- NOTE | 2019-03-06 07:00 | NUR ---
RECEIVED REPORT. ASSUMED CARE OF PATIENT. RESTING IN BED WITH EYES OPEN. AT BEDSIDE DURING BEDSIDE SHIFT REPORT. PATIENT DENIES NEEDS. CALL LIGHT WITHIN REACH. NO DISTRESS.
[2019-03-06 07:23] LABS: ALBUMIN 2.8 g/dL (3.4-5.0); ALKALINE PHOSPHATASE 97 U/L (46-116); ALT (SGPT) 47 U/L (10-68); BILIRUBIN - TOTAL 0.74 mg/dL (0.2-1.3); CALC OSMOLALITY 294 mosm/kg (275-300); CALCIUM 8.6 mg/dL (8.5-10.1); CARBON DIOXIDE 24.7 mmol/L (21.0-32.0); CHLORIDE - SERUM 107 mmol/L (98-107); CKMB 1.3 U/L (0.0-3.6); CREATINE KINASE 145 UL (21-232); CREATININE - SERUM 2.2 mg/dL (0.6-1.3); GLUCOSE 123 mg/dL (74-106); MAGNESIUM - SERUM 2.1 mg/dL (1.8-2.4); PHOSPHOROUS 5.8 mg/dL (2.5-4.9); POTASSIUM - SERUM 4.3 mmol/L (3.5-5.1); PRO BNP 16713 pg/mL (0-125); PROTEIN - SERUM 6.3 g/dL (6.4-8.2); SODIUM 144 mmol/L (136-145); TROPONIN-I 0.022 ng/mL (0.000-0.060); UREA NITROGEN 31 mg/dL (7-18); eGFR NON AFRICAN AMERICAN 32 mL/min (90-120)
--- NOTE | 2019-03-06 07:30 | NUR ---
WEIGHT PER STANDING SCALE RECORDED AT THIS TIME. NO DISTRESS.
--- NOTE | 2019-03-06 10:22 | NUR ---
PATIENT IS NOT IN HIS ROOM AND IS NOT SIGNED OUT IN BINDER FROM HOSPITAL PERSONNEL.
--- NOTE | 2019-03-06 10:23 | NUR ---
REFUSES SCD'S, UP AMBULATING IN ROOM.
[2019-03-06 10:52] VITALS: BP 143/83
--- NOTE | 2019-03-06 11:48 | NUR ---
FSBS 101. NO INSULIN PER SLIDING SCALE.
--- NOTE | 2019-03-06 13:21 | NUR ---
PATIENT GAVE PERMISSION FOR STAFF TO SPEAK WITH NANO DOSHI, IN REGARDS TO PATIENT CARE, TEST, RESULTS, ETC.
[2019-03-06 13:47] VITALS: Ht 172.7 cm; Wt 73.6 kg
[2019-03-06 13:48] VITALS: BP 141/99
[2019-03-06 14:26] LABS: APPEARANCE CLEAR (CLEAR); COLOR STRAW (YELLOW)
[2019-03-06 14:27] LABS: BILIRUBIN NEGATIVE (NEGATIVE); GLUCOSE NEGATIVE (NEGATIVE); KETONE NEGATIVE (NEGATIVE); NITRITE NEGATIVE (NEGATIVE); PROTEIN NEGATIVE (NEGATIVE); UROBILINOGEN NORMAL (NORMAL)
[2019-03-06 14:32] LABS: UDS - AMPHET NEGATIVE QUAL (NEGATIVE); UDS - BARB NEGATIVE QUAL (NEGATIVE); UDS - BENZO NEGATIVE QUAL (NEGATIVE); UDS - COCAINE NEGATIVE QUAL (NEGATIVE); UDS - OPIATE NEGATIVE QUAL (NEGATIVE); UDS - PCP NEGATIVE QUAL (NEGATIVE); UDS - THC NEGATIVE QUAL (NEGATIVE)
--- NOTE | 2019-03-06 15:08 | NUR ---
RESTING IN BED. URINALYSIS AND UDS RESULTED. NO DISTRESS. CALL LIGHT WITHIN REACH. DENIES NEEDS.
[2019-03-06 16:10] VITALS: BP 152/86
--- NOTE | 2019-03-06 16:26 | NUR ---
FSBS 122. NO INSULIN PER SLIDING SCALE.
--- NOTE | 2019-03-06 19:15 | NUR ---
AROUSES WITH VOICE AND SEEMS ALERT AND OX4 BED IS LOW AND LOCKED AND I PLACED CALL LIGHT BACK WITH PT LCTA SKIN WARM AND DRY PT NOT WEARING O2 AND DENIES NEEDS I DID GET FRESH WATER AT THIS TIME
[2019-03-06 20:00] VITALS: BP 118/78
[2019-03-07] VITALS: BP 141/92
[2019-03-07 04:00] VITALS: BP 132/80
--- NOTE | 2019-03-07 07:10 | NUR ---
PT RESTING IN BED, SHIFT ASSESSMENT PERFORMED. DENIES ANY NEEDS AT THIS TIME, WILL CONT TO FOLLOW POC
[2019-03-07 08:20] LABS: BASOPHILS 0.1 % (0-2); EOSINOPHILS 0.3 % (0-7); IMMATURE GRANULOCYTES 0.2 % (0-5); LYMPHOCYTES 9.1 % (15-50); MCH 25.2 pg (26.0-34.0); MCHC 32.5 g/dL (31.0-37.0); MCV 77.5 fL (80.0-100.0); MEAN PLATELET VOLUME 10.9 fL (7.4-10.4); MONOCYTES 8.2 % (2-11); NEUTROPHILS 82.1 % (40-80); PLATELET COUNT 417 10x3/uL (130-400); RDW 16.5 % (11.5-14.5)
[2019-03-07 08:21] LABS: HEMATOCRIT 46.4 % (42.0-54.0); HEMOGLOBIN 15.1 g/dL (13.5-17.5); RBC 5.99 10x6/uL (4.20-6.10); WBC 13.5 10x3/uL (4.8-10.8)
--- NOTE | 2019-03-07 08:31 | NUR ---
PT HAS ASA 325MG ORDERED AND ASA 81MG ORDERED. PAGED [facility] AND NEW ORDER RECIEVED TO STOP ASA 325MG.
[2019-03-07 08:33] LABS: ANION GAP 18.5 mmol/L (8-16); CALCIUM 9.1 mg/dL (8.5-10.1); CARBON DIOXIDE 24.8 mmol/L (21.0-32.0); CREATININE - SERUM 2.2 mg/dL (0.6-1.3); MAGNESIUM - SERUM 2.2 mg/dL (1.8-2.4); POTASSIUM - SERUM 4.3 mmol/L (3.5-5.1)
[2019-03-07 08:35] LABS: PHOSPHOROUS 4.2 mg/dL (2.5-4.9)
[2019-03-07 08:39] VITALS: BP 154/114
--- NOTE | 2019-03-07 12:20 | NUR ---
PT RESTING IN BED EATING LUNCH. DENIES ANY NEEDS AT THIS TIME, WILL CONT TO FOLLOW POC
[2019-03-07 13:16] VITALS: BP 149/88
--- NOTE | 2019-03-07 14:55 | MORECARE ---
CASE MANAGEMENT DISCHARGE SUMMARY PATIENT: NOE MARTINEZ VERITO UNIT: [id number] ADM DATE: 03/05/19 AGE: 68 : 50 SEX: M ROOM/BED: D.2111 AUTHOR: PAULA SANFORD PHYSICIAN: REFERRING PHYSICIAN: KAILA DIAL MD DATE OF SERVICE: 03/07/19 Discharge Plan Patient Name: NOE MARTINEZ Facility: [facility]:[place] : 1950 Planned Disposition: Home Anticipated Discharge Date: Discharge Date: Expected LOS: Initial Reviewer: [email or web address] Initial Review Date: 03/07/2019 Generated: 03/07/19 3:55 pm Comments DCP- Discharge Planning Updated by [email or web address]: Megan Briscoe on 03/07/19 1:[address] Patient Name: NOE MARTINEZ Admission Status: ER Accout number: [id number] Admission Date: 03-05-2019 : 1950 Admission Diagnosis: Attending: KAILA DIAL Current LOS: 2 Anticipated DC Date: Planned Disposition: Home Primary Insurance: [facility] [employer] Discharge Planning Comments: CM MET WITH PATIENT AFTER OBTAINING VERBAL CONSENT. STATES PLANS TO DISCHARGE TO HOME. DISCUSSED NEED FOR HH, REHAB OR EQUIPMENT, PATIENT STATES NO NEEDS. CM WILL FOLLOW AND ASSIST NEEDED. Construction Job Titles: Megan Briscoe DCPIA - Discharge Planning Initial Assessment Updated by [email or web address]: Megan Briscoe on 03/07/19 2:49 pm * Is the patient Alert and Oriented? Yes * PCP ROBBY * Pharmacy [facility] * Preadmission Environment Home Alone * ADLs Independent * Equipment None * List name and contact numbers for known caregivers / representatives who currently or will assist patient after discharge: JESUS, , * Community resources currently utilized None * Additional services required to return to the preadmission environment? No * Can the patient safely return to the preadmission environment? Yes * Has this patient been hospitalized within the prior 30 days at any hospital? No Patient Name: NOE MARTINEZ Page [id number] at 1455 All edits/amendments must be made on the electronic document DICTATION DATE: 03/07/191454 PRESIDENT: SOFIA 03/07/191454 RPT#: [id number] [place] DATE: STATUS: ADM IN [facility] [address] [place] [address] END OF REPORT
[2019-03-07 15:10] LABS: % SATURATION 9 % (15-55); IRON 37 ug/dl (35-150); TOTAL IRON BIND CAPACITY 409 ug/dl (260-445); UNSAT IRON BIND CAPACITY 372 ug/dl (150-375)
[2019-03-07 20:35] VITALS: BP 130/79
[2019-03-08 00:45] VITALS: BP 143/69
[2019-03-08 04:30] VITALS: BP 126/82
[2019-03-08 06:18] LABS: BASOPHILS 0.1 % (0-2); EOSINOPHILS 0.7 % (0-7); HEMATOCRIT 38.3 % (42.0-54.0); HEMOGLOBIN 12.4 g/dL (13.5-17.5); IMMATURE GRANULOCYTES 0.2 % (0-5); LYMPHOCYTES 6.9 % (15-50); MCH 24.6 pg (26.0-34.0); MCHC 32.4 g/dL (31.0-37.0); MEAN PLATELET VOLUME 10.6 fL (7.4-10.4); MONOCYTES 11.2 % (2-11); NEUTROPHILS 80.9 % (40-80); PLATELET COUNT 355 10x3/uL (130-400); RBC 5.04 10x6/uL (4.20-6.10); RDW 15.1 % (11.5-14.5)
[2019-03-08 06:20] LABS: WBC 8.2 10x3/uL (4.8-10.8)
[2019-03-08 06:38] LABS: ANION GAP 16.8 mmol/L (8-16); CALCIUM 8.6 mg/dL (8.5-10.1); CARBON DIOXIDE 23.8 mmol/L (21.0-32.0); CREATININE - SERUM 2.3 mg/dL (0.6-1.3)
[2019-03-08 06:43] LABS: POTASSIUM - SERUM 3.6 mmol/L (3.5-5.1)
--- NOTE | 2019-03-08 07:57 | NUR ---
AWAKE AND ALERT. TELEMERTY SHOWS SR 87. LEFT FA IV WITH DOBUTAMINE AT 10.2. PT IS UP AB STUART. . SR UP WITH CALL LIGHT IN REACH. WILL MONITOR
[2019-03-08 08:55] VITALS: BP 149/88
[2019-03-08 12:10] VITALS: BP 148/82
--- NOTE | 2019-03-08 13:02 | NUR ---
PT COMPLAINS OF NOT HAVING A BM. I ADVISED THAT IT MIGHT TAKE A LITTLE WHILE FOR LAXATIVE TO WORK. STATES HE HAD SEVERAL BMS YESTERDAY BUT NONE TODAY. WILL MONITOR
--- NOTE | 2019-03-08 13:55 | NUR ---
Nutrition Follow-up: Pt reports he did not eat this morning 2/2 abdominal discomfort/distention but ate well yesterday. C/o constipation; last BM yesterday. Pt being diuresed; to have accurate I&Os. Diet: Renal ADA Wt: 150# (wt yesterday was 169#; daily wts ordered) Labs noted: K+ 3.6, Glu 138 Meds noted: Amaryl, Lactulose, Colace, Lasix, KDur -Continue current diet as tolerated. -Pt agreed to trial Nepro; sent with lunch today. -Monitor wt trends. -RD following.
[2019-03-08 15:41] VITALS: BP 152/97
--- NOTE | 2019-03-08 19:33 | NUR ---
ASSESSMENT COMPLETE, PT A&O. RESPERATIONS EVEN ON RA. IV TO LEFT AC WITH DOBUTAMINE INFUSING AT 5 MK/KG. PT DENIES NEEDS AT THIS TIME, BED LOW, CL IN REACH.
[2019-03-08 20:00] VITALS: BP 132/77
[2019-03-09 00:01] VITALS: BP 134/69
[2019-03-09 04:00] VITALS: BP 104/69
[2019-03-09 06:36] LABS: ANION GAP 18.4 mmol/L (8-16); CALCIUM 8.4 mg/dL (8.5-10.1); CARBON DIOXIDE 21.1 mmol/L (21.0-32.0)
[2019-03-09 06:37] LABS: CREATININE - SERUM 3.3 mg/dL (0.6-1.3); POTASSIUM - SERUM 4.5 mmol/L (3.5-5.1)
[2019-03-09 06:57] LABS: BASOPHILS 0.1 % (0-2); EOSINOPHILS 0.2 % (0-7); HEMATOCRIT 36.4 % (42.0-54.0); HEMOGLOBIN 12.1 g/dL (13.5-17.5); IMMATURE GRANULOCYTES 0.2 % (0-5); MCH 24.6 pg (26.0-34.0); MCHC 33.2 g/dL (31.0-37.0); MCV 74.1 fL (80.0-100.0); MONOCYTES 11.9 % (2-11); NEUTROPHILS 84.6 % (40-80); PLATELET COUNT 355 10x3/uL (130-400); RBC 4.91 10x6/uL (4.20-6.10); RDW 14.8 % (11.5-14.5)
[2019-03-09 06:58] LABS: WBC 11.4 10x3/uL (4.8-10.8)
--- NOTE | 2019-03-09 07:38 | NUR ---
ALERT AND ORIENTED. TELEMERTY SHOWS SR. IV TO LEFT FOREARM WITH DOBUTAMINE AT 10.2. UP AB STUART. C/O SOME LOWER ABD PAIN. SR UP WITH CALL LIGHT IN REACH. WILL MONITOR
[2019-03-09 08:00] VITALS: BP 125/75
[2019-03-09 12:00] VITALS: BP 114/72
[2019-03-09 16:04] VITALS: BP 125/82
--- NOTE | 2019-03-09 16:49 | NUR ---
PTS BLOOD SUGAR 66. 2 JUICE AND DIET GIVEN. NO SYMPTOMS NOTED
--- NOTE | 2019-03-09 19:30 | NUR ---
INITIAL ROUNDS AND ASSESSMENT COMPLETED. PT RESTING IN BED. SR/87 PER TELEMETRY. NONLABORED RESPIRATIONS ON ROOM AIR. SALINE LOCK TO LFA. MONITOR AND CPOC.
[2019-03-09 20:00] VITALS: BP 115/71
--- NOTE | 2019-03-09 21:54 | NUR ---
BEDTIME MED GIVEN. FSBS 53. PT GIVEN SANDWICH TRAY AND APPLE JUICE AND IS CURRENTLY EATING.
[2019-03-10 04:00] VITALS: BP 124/76
[2019-03-10 05:38] LABS: HEMATOCRIT 39.2 % (42.0-54.0); HEMOGLOBIN 12.9 g/dL (13.5-17.5); MCHC 32.9 g/dL (31.0-37.0); MEAN PLATELET VOLUME 10.9 fL (7.4-10.4); PLATELET COUNT 331 10x3/uL (130-400); RBC 5.16 10x6/uL (4.20-6.10); RDW 14.9 % (11.5-14.5); WBC 22.3 10x3/uL (4.8-10.8)
[2019-03-10 05:50] LABS: LYMPHOCYTES 5 % (15-50); MONOCYTES 11 % (2-11); NEUTROPHILS 82 % (40-80)
[2019-03-10 05:51] LABS: PLATELET ESTIMATE NORMAL
[2019-03-10 05:57] LABS: ANION GAP 14.8 mmol/L (8-16); CALCIUM 8.7 mg/dL (8.5-10.1); CARBON DIOXIDE 24.8 mmol/L (21.0-32.0); POTASSIUM - SERUM 4.6 mmol/L (3.5-5.1)
[2019-03-10 06:00] LABS: CREATININE - SERUM 4.6 mg/dL (0.6-1.3)
--- NOTE | 2019-03-10 06:32 | NUR ---
CRITICAL GLUCOSE OF 39 PER LAB. ADMINISTERED 1/2 AMP DEXTROSE VIA LFA IV. PT ALERT/ORIENTED. PROVIDED WITH JUICE AND PUDDING. WILL MONITOR RESPONSE.
[2019-03-10 09:22] VITALS: BP 117/74
--- NOTE | 2019-03-10 11:27 | NUR ---
I have reviewed this patient and I concur with the Shift Assessment completed by the Licensed Practical Nurse today this shift.
--- NOTE | 2019-03-10 11:36 | NUR ---
PT'S BS 50. GAVE BS OJ WITH TWO SUGAR OACKETS IN IT AND COOKIES. PT ABOUT TO EAT LUNCH TRAY. WILL CONTINUE TO MONITOR.
[2019-03-10 14:35] VITALS: BP 145/88
--- NOTE | 2019-03-10 14:58 | NUR ---
PT'S BS 42. 1/2 AMP OF D50 GIVEN. WILL RECHECK BS.
--- NOTE | 2019-03-10 15:06 | NUR ---
D5 DRIP STARTED AT 30ML/HR THROUGH LEFT FA 20G IV.
--- NOTE | 2019-03-10 15:25 | NUR ---
PT STATES HE DOES NOT HAVE THE NEED TO UIRNATE. PT BLADDER SCNANED AND RETAINING 510ML. WILL STATE THIS TO DR. DIAL.
--- NOTE | 2019-03-10 15:28 | NUR ---
STATED TO DR. DIAL PT WAS RETAINING 510ML AND HE STATES TO PLACE A GREGORIO CATH. I VERBALIZED UNDERSTANDING.
--- NOTE | 2019-03-10 15:35 | NUR ---
PT'S BS NOW 79.
--- NOTE | 2019-03-10 15:35 | NUR ---
PT'S BS NOW 74. WILL CONTINUE TO MONITOR.
--- NOTE | 2019-03-10 15:49 | NUR ---
16 FERENCH GREGORIO CATH INSERTED ON FIRST ATTEMPT FOR RETENTION. GOT OUT AND EMPTIED 1,025ML.
[2019-03-10 18:19] VITALS: BP 134/72
--- NOTE | 2019-03-10 19:15 | NUR ---
RECEIVED REPORT, WILL ASSUME CARE OF PT, PT IS SLEEPING, NO DISTRESS NOTICED AT THIS TIME, BED IS LOW, SRX2, CALL LIGHT IN REACH, WILL CONTINUE PLAN OF CARE
[2019-03-10 20:00] VITALS: BP 118/68
--- NOTE | 2019-03-10 20:20 | NUR ---
EKEABRKQHE-25-OSMN 1 TUBE OF INSTA GLUCOSE, AND ICECREAM, ORANGE JUICE
--- NOTE | 2019-03-10 22:05 | NUR ---
PAGED [facility] TO HAVE GENERAL ASSEMBLER INSTALLER CALL BACK, WAS TOLD IT WAS ERICK, WILL WAIT FOR A CALL BACK TO DISCUSS BLOODSUGARS
--- NOTE | 2019-03-10 22:27 | NUR ---
WOOD BRENNER CALLED BACK, WAS TOLD TO INCREASE FLUIDS TO 75, AND PUSK AN AMP OF DEXTROSE
[2019-03-11] VITALS (12 sets, daily range): BP systolic 108–150; BP diastolic 60–89
--- NOTE | 2019-03-11 00:10 | NUR ---
CALLED A RAPID-BS-32, PROVIDED PUDDING, PT WAS SHAKING, GAVE AMP D50
[2019-03-11 00:20] LABS: BASOPHILS 0.1 % (0-2); EOSINOPHILS 0 % (0-7); HEMATOCRIT 39.1 % (42.0-54.0); HEMOGLOBIN 12.8 g/dL (13.5-17.5); IMMATURE GRANULOCYTES 0.3 % (0-5); MCH 24.8 pg (26.0-34.0); MCHC 32.7 g/dL (31.0-37.0); MCV 75.8 fL (80.0-100.0); MEAN PLATELET VOLUME 10.1 fL (7.4-10.4); NEUTROPHILS 83.6 % (40-80); PLATELET COUNT 347 10x3/uL (130-400); RBC 5.16 10x6/uL (4.20-6.10); RDW 14.9 % (11.5-14.5)
[2019-03-11 00:51] LABS: ALBUMIN 2.6 g/dL (3.4-5.0); ANION GAP 19.2 mmol/L (8-16); BILIRUBIN - TOTAL 0.49 mg/dL (0.2-1.3); CALCIUM 8.9 mg/dL (8.5-10.1); CARBON DIOXIDE 22.8 mmol/L (21.0-32.0); CREATININE - SERUM 4.3 mg/dL (0.6-1.3); PROTEIN - SERUM 7.2 g/dL (6.4-8.2)
--- NOTE | 2019-03-11 01:11 | NUR ---
BLOODSUGAR NOW 104
--- NOTE | 2019-03-11 01:59 | NUR ---
BS-29-PUSH AMP OF D50, ALSO PROVIDE SANDWICH AND DRINK
--- NOTE | 2019-03-11 02:44 | NUR ---
BLOODSUGAR IS 201, WILL CONTINUE TO MONITOR
--- NOTE | 2019-03-11 04:16 | NUR ---
I have reviewed this patient and I concur with the Shift Assessment completed by the Licensed Practical Nurse today this shift.
--- NOTE | 2019-03-11 04:31 | NUR ---
BLOODSUGAR-65, PROVIDED SOME OATMEAL WITH SUGAR AND BUTTER, WILL CONTINUE MONITOR
--- NOTE | 2019-03-11 06:04 | NUR ---
GRTOHFCBNO-75-AUHMDMOZ ORANGEJUICE WITH 4 SUGARS
--- NOTE | 2019-03-11 07:30 | NUR ---
RECIEVE REPORT. ALERT AND ORIENTED X4. SITTING UP IN BED. FSBS 97. GREGORIO DRAINING BY GRAVITY SECURE TO RT INNER THIGH. DENIES ANY NEEDS. CONTINUE PLAN OF CARE AND SAFETY PRECAUTIONS.
--- NOTE | 2019-03-11 14:36 | NUR ---
ALERT AND ORIENTED X4. SITTING UP IN BED. FAMILY AT BEDSIDE. FSBS 39. ADMINISTER 25mL OF D-50 ORDERED PER PROTOCOL. NOTIFY GIO DIFFICULTY KEEPING GLUCOSE WNL.
--- NOTE | 2019-03-11 15:40 | NUR ---
EYES FIXED, UNVOLUNTARY BODY JERKING IN BED. FSBS 43, 1 AMP D50 ADMINISTERED PER PROTOCOL. IMMEDIATELY BECOMES RESPONSIVE. AT BEDSIDE. VERBALLY ORDERS TO TRANSFER TO ICU.
--- NOTE | 2019-03-11 16:09 | NUR ---
PT ARRIVED TO UNIT AT THIS TIME PER DR DIAL ORDERS FOR CONSISTENT LOW BLOOD SUGARS. PT RECIEVED 1AMP D50 BEFORE ARRIVING FOR BLOOD GLUCOSE LEVEL OF 39, SOME TWITCHING NOTED DURING THIS TIME WITH PT NOT RESPONSIVE. AFTER BLOOD SUGAR BEGAN TO RISE PT BECAME ALERT AND ORIENTED. BLOOD GLUCOSE UPON ARRIVAL TO ICU IS 101. WILL CONTINUE PLAN OF CARE.
--- NOTE | 2019-03-11 18:23 | NUR ---
1700 MANY ATTEMPTS BY SEVERAL STAFF FOR ADDITIONAL IV ACCESS UNSUCCESSFUL NOTIFIED DR DIAL OF PATIENT VOMITING UP HIS DINNER PT ABLE TO HOLD DOWN LIQUIDS SEVERAL BLOOD SUGAR CHECKS ONGOING
--- NOTE | 2019-03-11 19:15 | NUR ---
Received patient resting in bed with eyes closed, assessment completed per flowsheet. Patient AO x4, awakens to voice and answers appropriately/follows instructions. S1/S2 noted NSR on telemetry, rythmic and regular. Breathing is shallow on 2L via NC with O2 sat 94%, lung sounds clear bilateral upper with diminished mid and lower. Abdomen is round/soft with bowel sounds active x4, non-tender. Rivas secured, concentrated yellow urine noted. All pulses palpable with cap refill < 3 sec, skin warm/dry. Denies pain or other needs at this time, see flowsheet for details. All VSS and will continue to monitor.
--- NOTE | 2019-03-11 21:00 | NUR ---
Patient sleeping in bed with eyes closed, family at bedside for visitation. Discussed current status, treatment plans with all questions answered to satisfaction. Continuing to check glucose, will follow hypoglycemic protocol as ordered. No further needs and will continue to monitor.
--- NOTE | 2019-03-11 23:00 | NUR ---
Reassessment completed per flowsheet, no changes noted from previous assessment. Patient slightly lethargic, awakens to voice and answers appropriately/follows instructions. S1/S2 noted NSR on telemetry, rythmic and regular. Breathing is shallow on 2L via NC with O2 sat 100%, lung sounds clear bilateral upper with diminished mid and lower. All pulses palpable with cap refill < 3 sec, skin warm/dry. Denies pain or other needs at this time, see flowsheet for details. All VSS and will continue to monitor.
[2019-03-12] VITALS (24 sets, daily range): BP systolic 101–148; BP diastolic 71–98
--- NOTE | 2019-03-12 01:00 | NUR ---
Reassessment completed per flowsheet. Checking glucose and treating per Hypoglycemic protocol, will continue to monitor.
--- NOTE | 2019-03-12 01:20 | NUR ---
Glucose checked, result questionable and rechecked. 2nd recheck on different finger remains questionable, will have 2nd RN to verify. Glucose rechecked by 2nd RN with similar results to previous glucose, treated per hypoglycemic protocol. Will continue to monitor.
--- NOTE | 2019-03-12 02:45 | NUR ---
Reassessment completed per flowsheet. Patient awakens easily to voice, follows instructions/answers appropriately. S1/S2 noted NSR with PAC/PVC on telemetry. Breathing is shallow on 2L via NC with O2 sat 100%, lung sounds clear bilateral upper with diminished mid and lower. All pulses palpable with cap refill < 3 sec, skin warm/dry. Denies pain or other needs at this time, see flowsheet for details. All VSS and will continue to monitor.
[2019-03-12 04:30] LABS: BASOPHILS 0.1 % (0-2); HEMATOCRIT 35.9 % (42.0-54.0); HEMOGLOBIN 11.7 g/dL (13.5-17.5); IMMATURE GRANULOCYTES 0.3 % (0-5); LYMPHOCYTES 3.4 % (15-50); MCH 24.9 pg (26.0-34.0); MCHC 32.6 g/dL (31.0-37.0); MCV 76.4 fL (80.0-100.0); MEAN PLATELET VOLUME 10.6 fL (7.4-10.4); MONOCYTES 11.8 % (2-11); NEUTROPHILS 83.4 % (40-80); PLATELET COUNT 374 10x3/uL (130-400)
[2019-03-12 04:33] LABS: WBC 15.7 10x3/uL (4.8-10.8)
[2019-03-12 05:00] LABS: ALBUMIN 2.2 g/dL (3.4-5.0); ANION GAP 12.9 mmol/L (8-16); BILIRUBIN - TOTAL 0.45 mg/dL (0.2-1.3); CALCIUM 8.5 mg/dL (8.5-10.1); PROTEIN - SERUM 5.6 g/dL (6.4-8.2)
[2019-03-12 05:05] LABS: CREATININE - SERUM 2.4 mg/dL (0.6-1.3); POTASSIUM - SERUM 4.9 mmol/L (3.5-5.1)
--- NOTE | 2019-03-12 07:00 | NUR ---
SHIFT ASSESSMENT COMPLETED, PT CARE ASSUMED. MONITORS ON AND WORKING, VITALS STABLE. CALL LIGHT WITHIN REACH, NO SIGNS/SYMPTOMS OF PAIN OR DISCOMFORT NOTED, SEE FLOW SHEET FOR FURTHER DETAILS.
--- NOTE | 2019-03-12 09:00 | NUR ---
PT TURNED AND REPOSITIONED FOR COMFORT, MONITORS ON AND WORKING, VITALS STABLE, CALL LIGHT WITHIN REACH, WILL CONTINUE TO OBSERVE.
--- NOTE | 2019-03-12 09:23 | NUR ---
Nutrition follow-up: Pt now in ICU due to hypoglycemia (13 mg/dl this am) Diet: Renal ADA PO intake ~50% of meals Labs reviewed Wt: 164# Will encourage increased po intake RDN following.
--- NOTE | 2019-03-12 11:00 | NUR ---
NO CHANGES, SEE FLOW SHEET FOR FURTHER DETIALS. MONITORS ON AND WORKING, CALL LIGHT WITHIN REACH. WILL CONTINUE TO OBSERVE.
--- NOTE | 2019-03-12 13:00 | NUR ---
MONITORS ON AND WORKING,VITALS STABLE, FAMILY AT BEDSIDE, UPDATE PROVIDED, NO CHANGES, CALL LIGHT WITHIN REACH, WILL CONTINUE TO OBSERVE.
--- NOTE | 2019-03-12 15:00 | NUR ---
MONITORS ON AND WORKING, VITALS STABLE, SEE FLOW SHEET FOR FURTHER DETAILS. WILL CONTINUE TO OBSERVE.
--- NOTE | 2019-03-12 17:00 | NUR ---
MONITORS ON AND WORKING, VITALS STABLE. CALL LIGHT WITHIN REACH, WILL CONTINUE TO OBSERVE.
--- NOTE | 2019-03-12 19:00 | NUR ---
Received patient resting in bed with eyes open watching TV, assessment completed per flowsheet. Patient AO x4, answers appropriately/follows instructions. S1/S2 noted NSR with occasional PVC on telemetry, rythmic and regular. Breathing is shallow/unlabored on room air with O2 sat 95%, lung sounds clear bilateral upper and mid with diminished lower. Abdomen is round/soft with bowel sounds active x4, non-tender. Rivas secured, concentrated yellow urine noted. All pulses palpable with slight weakness noted all, cap refill < 3 sec. C/O intermittent abdominal aching 1/10, denies other needs at this time. See flowsheet for details, all VSS and will continue to montior.
--- NOTE | 2019-03-12 21:00 | NUR ---
No visitors at this time, HS meds given as ordered. Discussed current status/treatment plan with patient, all questions answered to satisfaction. No further needs at this time, will continue to monitor.
--- NOTE | 2019-03-12 22:55 | NUR ---
Reassessment completed per flowsheet, no changes noted from previous assessment. Patient AO x4, calm and cooperative. S1/S2 noted NSR with regular PVC on telemetry. Breathing is shallow/unlabored on room air with O2 sat 100%, lung sounds clear bilateral upper and mid with diminished lower. Abdomen is round/soft with bowel sounds active x4, non-tender. All pulses palpable with cap refill < 3 sec, skin warm/dry. Denies pain or other needs, repositioned for comfort. See flowsheet for details, all VSS and will continue to monitor.
[2019-03-13] VITALS (15 sets, daily range): BP systolic 118–169; BP diastolic 75–88
--- NOTE | 2019-03-13 01:00 | NUR ---
Patient assisted onto bedpan at request, flatus passed with no BM noted. Patient states feeling better, denies pain or other needs and will continue to monitor.
--- NOTE | 2019-03-13 02:54 | NUR ---
Reassessment completed per flowsheet, no changes from previous assessment. S1/S2 noted NSR with regular PVC on telemetry. Breathing is shallow/unlabored on room air with O2 sat 98%, lung sounds clear bilateral upper and mid with diminished lower. Abdomen is round/soft with bowel sounds active x4, non-tender. Rivas secured, concentrated yellow urine noted. All pulses palpable with cap refill < 3 sec, skin warm/dry. Denies pain or other needs at this time, see flowsheet for details. All VSS and will continue to monitor.
[2019-03-13 03:56] LABS: BASOPHILS 0.1 % (0-2); EOSINOPHILS 4.7 % (0-7); HEMATOCRIT 33.6 % (42.0-54.0); HEMOGLOBIN 10.9 g/dL (13.5-17.5); IMMATURE GRANULOCYTES 0.3 % (0-5); LYMPHOCYTES 7.9 % (15-50); MCH 24.2 pg (26.0-34.0); MCHC 32.4 g/dL (31.0-37.0); MCV 74.7 fL (80.0-100.0); MEAN PLATELET VOLUME 9.8 fL (7.4-10.4); MONOCYTES 14.3 % (2-11); NEUTROPHILS 72.7 % (40-80); PLATELET COUNT 380 10x3/uL (130-400); RDW 14.8 % (11.5-14.5)
[2019-03-13 04:20] LABS: WBC 10.2 10x3/uL (4.8-10.8)
[2019-03-13 04:40] LABS: ANION GAP 11.9 mmol/L (8-16); BILIRUBIN - TOTAL 0.52 mg/dL (0.2-1.3); CALCIUM 8.1 mg/dL (8.5-10.1); CARBON DIOXIDE 24.8 mmol/L (21.0-32.0); CREATININE - SERUM 2.1 mg/dL (0.6-1.3); POTASSIUM - SERUM 4.7 mmol/L (3.5-5.1)
--- NOTE | 2019-03-13 05:00 | NUR ---
Patient resting in bed with eyes open, no s/s of distress at this time. Denies pain or other needs at this time, all VSS and will continue to monitor.
--- NOTE | 2019-03-13 07:00 | NUR ---
BEDSIDE REPORT RECEIVED. ASSESSMENT COMPLETED PER FLOWSHEET, SEE FLOWSHEET FOR INFORMATION. PT SITTING UP IN BED EATING BREAKFAST. NO NEEDS OR DISTRESS NOTED AT THIS TIME. VSS. WILL CONT TO MONITOR.
--- NOTE | 2019-03-13 09:00 | NUR ---
0900 MEDICATIONS GIVEN. NO NEEDS OR DISTRESS NOTED AT THIS TIME. VSS. WILL CONT TO MONITOR.
--- NOTE | 2019-03-13 11:00 | NUR ---
CHECKED FSBS, SEE FLOWSHEET FOR INFORMATION. NO NEEDS OR DISTRESS NOTED AT THIS TIME. VSS. WILL CONT TO MONITOR.
--- NOTE | 2019-03-13 11:57 | NUR ---
AT [facility] WITH PHYSICAL THERAPY. PHYSICAL THERAPY WALKED PT 100 FT. ORDERED PT TO TRANSFER TO MED SURG TODAY. VSS. WILL CONT TO MONITOR.
--- NOTE | 2019-03-13 13:00 | NUR ---
REPORT CALLED TO SHANELL IN MED SURG. VSS. WILL CONT TO MONITOR.
--- NOTE | 2019-03-13 14:37 | NUR ---
OT NOTE: PT COMPLETED FACE WASH/HAND WASH WITH CGA/MIN A. PT COMPLETED BED MOB AND EOB SITTING WITH SBA. THANK YOU, LYRIC BARNES
--- NOTE | 2019-03-13 19:15 | NUR ---
PT ALERT AND OX4 BED LOW AND LOCKED SRX2 AND CALL LIGHT IS IN REACH. GREGORIO TO GRAVITY WITH RED URINE IT APPEARS IT HAS BEEN SO OVER 24 HOURS AND MD AWARE DENIES NEEDS AT THIS TIME
[2019-03-14] VITALS: BP 126/93
[2019-03-14 04:30] VITALS: BP 130/80
--- NOTE | 2019-03-14 05:34 | NUR ---
PT HAS REMOVED IV CATH INTACT
[2019-03-14 06:05] LABS: BASOPHILS 0.2 % (0-2); EOSINOPHILS 3.4 % (0-7); HEMATOCRIT 34.8 % (42.0-54.0); HEMOGLOBIN 11.2 g/dL (13.5-17.5); IMMATURE GRANULOCYTES 0.2 % (0-5); LYMPHOCYTES 12.7 % (15-50); MCH 24.3 pg (26.0-34.0); MCHC 32.2 g/dL (31.0-37.0); MCV 75.5 fL (80.0-100.0); MEAN PLATELET VOLUME 10.3 fL (7.4-10.4); MONOCYTES 13.4 % (2-11); NEUTROPHILS 70.1 % (40-80); PLATELET COUNT 403 10x3/uL (130-400); RBC 4.61 10x6/uL (4.20-6.10); RDW 14.9 % (11.5-14.5); WBC 8.4 10x3/uL (4.8-10.8)
[2019-03-14 06:31] LABS: ALBUMIN 2.1 g/dL (3.4-5.0); ANION GAP 13.1 mmol/L (8-16); BILIRUBIN - TOTAL 0.52 mg/dL (0.2-1.3); CALCIUM 8.5 mg/dL (8.5-10.1); CARBON DIOXIDE 21.5 mmol/L (21.0-32.0); CREATININE - SERUM 1.6 mg/dL (0.6-1.3); POTASSIUM - SERUM 4.6 mmol/L (3.5-5.1); PROTEIN - SERUM 6.1 g/dL (6.4-8.2)
--- NOTE | 2019-03-14 08:15 | NUR ---
PT RESTING IN BED WITH EYES OPEN CALL LIGHT IN REACH WILL MONITER
[2019-03-14 09:13] VITALS: BP 138/67
[2019-03-14 13:36] VITALS: BP 155/88
--- NOTE | 2019-03-14 13:41 | NUR ---
OT NOTE: BED MOB WITH SPV; AMB IN ROOM WITH MIN ASSIST..PT IS SLIGHTLY UNSTEADY AND VERY IMPULSIVE. FAIR SAFETY AWARNESS. MIN ASSIST WITH TOILETING; ABLE TO STAND AT SINK WITH CGA AND PERFORM SIMPLE GROOMING TASKS. GOOD DYNAMIC SITTING BALANCE; AROM EXS FOR STRENGTHENING. NANO RIBERA, OTR/L
--- NOTE | 2019-03-14 14:29 | NUR ---
I have reviewed this patient and I concur with the Shift Assessment completed by the Licensed Practical Nurse today this shift.
--- NOTE | 2019-03-14 15:36 | NUR ---
Rehab Prescreening Consult recieved and the chart has been reviewed. He is [facility] managed Medicare and will require a preauth for the acute rehab. According to his PT and OT notes he has ambulated 250 ft with no device and is min assist for ADL's. He is to high level to qualify for the ARU. Discussed with the CM Berhane Ceron. Yomaira Padgett RN Clinical Liaison, Rehab
--- NOTE | 2019-03-14 17:08 | MORECARE ---
CASE MANAGEMENT DISCHARGE SUMMARY PATIENT: NOE MARTINEZ UNIT: [id number] ADM DATE: 03/05/19 AGE: 68 : 50 SEX: M ROOM/BED: D.2133 AUTHOR: JUVENALDOC PHYSICIAN: REFERRING PHYSICIAN: KAILA DIAL MD DATE OF SERVICE: 03/14/19 Discharge Plan Patient Name: NOE MARTINEZ Facility: [facility]:[place] : 1950 Planned Disposition: Prison Facility Anticipated Discharge Date: Discharge Date: Expected LOS: Initial Reviewer: [id number] Initial Review Date: 03/07/2019 Generated: 03/14/19 6:08 pm DCP- Discharge Planning Updated by [email or web address]: Megan Briscoe on 03/07/19 1:[address] Patient Name: NOE MARTINEZ Admission Status: ER Accout number: [id number] Admission Date: 03-05-2019 : 1950 Admission Diagnosis: Attending: KAILA DIAL Current LOS: 2 Anticipated DC Date: Planned Disposition: Home Primary Insurance: [facility] MEDICARE SOLUTIONS Discharge Planning Comments: CM MET WITH PATIENT AFTER OBTAINING VERBAL CONSENT. STATES PLANS TO DISCHARGE TO HOME. DISCUSSED NEED FOR HH, REHAB OR EQUIPMENT, PATIENT STATES NO NEEDS. CM WILL FOLLOW AND ASSIST NEEDED. Cordwainer: Megan Briscoe DCPIA - Discharge Planning Initial Assessment Updated by [id number]: Megan Briscoe on 03/07/19 2:49 pm * Is the patient Alert and Oriented? Yes * PCP ROBBY * Pharmacy [facility] * Preadmission Environment Home Alone * ADLs Independent * Equipment None * List name and contact numbers for known caregivers / representatives who currently or will assist patient after discharge: JESUS, , * Community resources currently utilized None * Additional services required to return to the preadmission environment? No * Can the patient safely return to the preadmission environment? Yes * Has this patient been hospitalized within the prior 30 days at any hospital? No Coverage Notice Reviewer: [id number] Avery Ceron Notice Issued Date-Time: 03/14/2019 14:40 Notice Type: IM Discharge Notice Notice Delivered To: Patient Relationship to Patient: Hat Block Bench Hand Name: Delivery Method: HAND - Hand Delivered Heather Days: Prior Verbal Notification: Recipient Understood Notice: Yes Recipient Signature: Yes Med Rec Note Co-signed by Attending: Coverage Notice Comment: Last DP export: 03/07/19 1:56 p Patient Name: NOE MARTINEZ Page [id number] at 1708 All edits/amendments must be made on the electronic document DICTATION DATE: 03/14/191707 KICKING MACHINE OPERATOR: SOFIA 03/14/191707 RPT#: [id number] DC DATE: STATUS: ADM IN [facility] [address] [place] [address] END OF REPORT
--- NOTE | 2019-03-14 17:20 | NUR ---
OT NOTE: PT EXHIBITES IMPULSIVITY AND FALL RISK. PT REQUIRE CUES TO INCREASE SAFETY. PT COMPLETED ADL MOB WITH CGA. PT COMPLETED HYGIENE TASKS WITH MIN A. PT COMPLETED EOB SITTING WITH SBA. THANK YOU,LYRIC BARNES
--- NOTE | 2019-03-14 17:20 | MORECARE ---
CASE MANAGEMENT DISCHARGE SUMMARY PATIENT: NOE MARTINEZ UNIT: [id number] ADM DATE: 03/05/19 AGE: 68 : 50 SEX: M ROOM/BED: D.2133 AUTHOR: PAULA SANFORD PHYSICIAN: REFERRING PHYSICIAN: KAILA DIAL MD DATE OF SERVICE: 03/14/19 Discharge Plan Patient Name: NOE MARTINEZ Facility: [facility]:[place] : 1950 Planned Disposition: Custodial Facility Anticipated Discharge Date: Discharge Date: Expected LOS: Initial Reviewer: [email or web address] Initial Review Date: 03/07/2019 Generated: 03/14/19 6:19 pm Comments DCP- Discharge Planning Updated by [id number]: Matt Ceron on 03/14/19 4:[address] Patient Name: NOE MARTINEZ Encounter No: [id number] : 1950 Primary Insurance: [facility] MEDICARE SOLUTIONS Anticipated DC Date: Planned Disposition: Custodial Facility External Planned Provider: TO BE DETERMINED DCP follow-up note: CM RECEIVED CALL FROM CM DIRECTOR ROYA WHO ADVISED THAT THERAPY IS RECOMMENDING REHAB FOR PT PRIOR TO GOING HOME. CM MET WITH PT IN ROOM TO DISCUSS DISCHARGE NEEDS AND PLANNING. CM DISCUSSED AVAILABILITY OF HOME HEALTH, REHAB SERVICES AND MEDICAL EQUIPMENT. PT WOULD LIKE TO BE CONSIDERED FOR REHAB AT [place]. PT STATES HE LIVES ALONE AND HAS NO BATHROOM IN HIS HOME, HE WOULD LIKE TO BE STONGER BEFORE GOING HOME. IMPORTANT MESSAGE FROM MEDICARE PROVIDED AND EXPLAINED. CM TO FOLLOW AND ASSIST NEEDED. CM OBTAINED ORDER FROM ELIDIA ARAGON FOR INPATIENT REHAB PRESCREENING. CM RECEIVED CALL FROM SHAWNA OF [facility] IN[facility] WHO REPORTS PT IS TOO HIGH FUNCTIONING FOR INPATIENT REHAB. CM TO DISCUSS INTERMEDIATE REHAB OPTIONS WITH PATIENT SOON POSSIBLE. EFREM Martinez DCP- Discharge Planning Updated by [id number]: Megan Briscoe on 03/07/19 1:[address] Patient Name: NOE MARTINEZ Admission Status: ER Accout number: [id number] Admission Date: 03-05-2019 : 1950 Admission Diagnosis: Attending: KAILA DIAL Current LOS: 2 Anticipated DC Date: Planned Disposition: Home Primary Insurance: [employer] MEDICARE SOLUTIONS Discharge Planning Comments: CM MET WITH PATIENT AFTER OBTAINING VERBAL CONSENT. STATES PLANS TO DISCHARGE TO HOME. DISCUSSED NEED FOR HH, REHAB OR EQUIPMENT, PATIENT STATES NO NEEDS. CM WILL FOLLOW AND ASSIST NEEDED. Cut In Worker: Megan Briscoe DCPIA - Discharge Planning Initial Assessment Updated by [email or web address]: Megan Briscoe on 03/07/19 2:49 pm * Is the patient Alert and Oriented? Yes * PCP ROBBY * Pharmacy [facility] IN [facility] * Preadmission Environment Home Alone * ADLs Independent * Equipment None * List name and contact numbers for known caregivers / representatives who currently or will assist patient after discharge: UNCLE LEE, * Community resources currently utilized None * Additional services required to return to the preadmission environment? No * Can the patient safely return to the preadmission environment? Yes * Has this patient been hospitalized within the prior 30 days at any hospital? No Coverage Notice Reviewer: [id number] Avery Ceron Notice Issued Date-Time: 03/14/2019 14:40 Notice Type: IM Discharge Notice Notice Delivered To: Patient Relationship to Patient: Receiving Weigher Name: Delivery Method: HAND - Hand Delivered Heather Days: Prior Verbal Notification: Recipient Understood Notice: Yes Recipient Signature: Yes Med Rec Note Co-signed by Attending: Coverage Notice Comment: Last DP export: 03/14/19 4:08 Patient Name: NOE MARTINEZ Page [id number] at 1720 All edits/amendments must be made on the electronic document DICTATION DATE: 03/14/191718 PRE SCHOOL MANAGER: SOFIA 03/14/191718 RPT#: [id number] DC DATE: STATUS: ADM IN [facility] [address] [place] [address] END OF REPORT
[2019-03-14 18:12] VITALS: BP 144/88
--- NOTE | 2019-03-14 18:32 | NUR ---
PT RESTING IN BED WITH EYES OPEN CALL LIGHT IN REACH WILL MONITER
--- NOTE | 2019-03-14 19:15 | NUR ---
EVENING ROUNDS COMPLETED. PATIENT RESTING IN BED WITH EYES OPEN. CALM AND COOPERATIVE WITH CARE AND ASSESSMENT. DENIES HAVING ANY PAIN OR NEEDS AT THIS TIME. BED IN LOWEST POSITION. SIDE RAILS UP. CALL LIGHT IN REACH. WILL CONTINUE TO MONITOR.
[2019-03-14 20:00] VITALS: BP 129/76
[2019-03-15] VITALS: BP 140/81
[2019-03-15 04:00] VITALS: BP 141/92
--- NOTE | 2019-03-15 04:31 | NUR ---
PATIENT RESTING IN BED WITH EYES CLOSED. NO SIGNS OF DISTRESS. BED IN LOWEST POSITION. SIDE RAILS UP. CALL LIGHT IN REACH. WILL CONTINUE TO MONITOR.
[2019-03-15 05:07] LABS: BASOPHILS 0.2 % (0-2); EOSINOPHILS 2.4 % (0-7); HEMATOCRIT 34.1 % (42.0-54.0); HEMOGLOBIN 10.8 g/dL (13.5-17.5); IMMATURE GRANULOCYTES 0.2 % (0-5); LYMPHOCYTES 12.6 % (15-50); MCH 24.1 pg (26.0-34.0); MCHC 31.7 g/dL (31.0-37.0); MCV 76.1 fL (80.0-100.0); MONOCYTES 13.3 % (2-11); NEUTROPHILS 71.3 % (40-80); PLATELET COUNT 406 10x3/uL (130-400); RBC 4.48 10x6/uL (4.20-6.10); RDW 14.9 % (11.5-14.5); WBC 8.2 10x3/uL (4.8-10.8)
[2019-03-15 05:35] LABS: ANION GAP 13.1 mmol/L (8-16); BILIRUBIN - TOTAL 0.3 mg/dL (0.2-1.3); CALCIUM 8.4 mg/dL (8.5-10.1); CARBON DIOXIDE 22.5 mmol/L (21.0-32.0); CREATININE - SERUM 1.4 mg/dL (0.6-1.3); MAGNESIUM - SERUM 1.7 mg/dL (1.8-2.4); POTASSIUM - SERUM 4.6 mmol/L (3.5-5.1); PROTEIN - SERUM 5.9 g/dL (6.4-8.2)
--- NOTE | 2019-03-15 08:03 | MORECARE ---
CASE MANAGEMENT DISCHARGE SUMMARY PATIENT: NOE MARTINEZ UNIT: [id number] ADM DATE: 03/05/19 AGE: 68 : 50 SEX: M ROOM/BED: D.2133 AUTHOR: PAULA SANFORD PHYSICIAN: REFERRING PHYSICIAN: KAILA DIAL MD DATE OF SERVICE: 03/15/19 Discharge Plan Patient Name: NOE MARTINEZ Facility: [facility]:[place] : 1950 Planned Disposition: [facility] Facility Anticipated Discharge Date: Discharge Date: Expected LOS: Initial Reviewer: [email or web address] Initial Review Date: 03/07/2019 Generated: 03/15/19 9:02 am Comments DCP- Discharge Planning Updated by [id number]: Matt Ceron on 03/14/19 4:[address] Patient Name: NOE MARTINEZ Encounter No: [id number] : 1950 Primary Insurance: [facility] MEDICARE SOLUTIONS Anticipated DC Date: Planned Disposition: [facility] Facility External Planned Provider: TO BE DETERMINED DCP follow-up note: CM RECEIVED CALL FROM CM DIRECTOR ROYA WHO ADVISED THAT THERAPY IS RECOMMENDING REHAB FOR PT PRIOR TO GOING HOME. CM MET WITH PT IN ROOM TO DISCUSS DISCHARGE NEEDS AND PLANNING. CM DISCUSSED AVAILABILITY OF HOME HEALTH, REHAB SERVICES AND MEDICAL EQUIPMENT. PT WOULD LIKE TO BE CONSIDERED FOR REHAB AT [place]. PT STATES HE LIVES ALONE AND HAS NO BATHROOM IN HIS HOME, HE WOULD LIKE TO BE STONGER BEFORE GOING HOME. IMPORTANT MESSAGE FROM MEDICARE PROVIDED AND EXPLAINED. CM TO FOLLOW AND ASSIST NEEDED. CM OBTAINED ORDER FROM ELIDIA ARAGON FOR INPATIENT REHAB PRESCREENING. CM RECEIVED CALL FROM SHAWNA OF [facility] INPAT[facility] WHO REPORTS PT IS TOO HIGH FUNCTIONING FOR INPATIENT REHAB. CM TO DISCUSS [facility] REHAB OPTIONS WITH PATIENT SOON POSSIBLE. EFREM Martinez DCP- Discharge Planning Updated by [email or web address]: Megan Briscoe on 03/07/19 1:[address] Patient Name: NOE MARTINEZ Admission Status: ER Accout number: [id number] Admission Date: 03-05-2019 : 1950 Admission Diagnosis: Attending: KAILA DIAL Current LOS: 2 Anticipated DC Date: Planned Disposition: Home Primary Insurance: [facility] MEDICARE SOLUTIONS Discharge Planning Comments: CM MET WITH PATIENT AFTER OBTAINING VERBAL CONSENT. STATES PLANS TO DISCHARGE TO HOME. DISCUSSED NEED FOR HH, REHAB OR EQUIPMENT, PATIENT STATES NO NEEDS. CM WILL FOLLOW AND ASSIST NEEDED. Payroll Services Analyst: Megan Briscoe DCPIA - Discharge Planning Initial Assessment Updated by [email or web address]: Matt Ceron on 03/15/19 8:01 am * Is the patient Alert and Oriented? Yes * PCP ROBBY * Pharmacy [facility] * Preadmission Environment Home Alone * ADLs Independent * Equipment Bedside Commode * List name and contact numbers for known caregivers / representatives who currently or will assist patient after discharge: UNCLE LEE, * Community resources currently utilized None * Additional services required to return to the preadmission environment? No * Can the patient safely return to the preadmission environment? Yes * Has this patient been hospitalized within the prior 30 days at any hospital? No Coverage Notice Reviewer: [id number] - Matt Ceron Notice Issued Date-Time: 03/14/2019 14:40 Notice Type: IM Discharge Notice Notice Delivered To: Patient Relationship to Patient: Personal Lines Sales Rep Name: Delivery Method: HAND - Hand Delivered Heather Days: Prior Verbal Notification: Recipient Understood Notice: Yes Recipient Signature: Yes Med Rec Note Co-signed by Attending: Coverage Notice Comment: Last DP export: 03/14/19 4:19 Patient Name: NOE MARTINEZ Page [phone] at 0803 All edits/amendments must be made on the electronic document DICTATION DATE: 03/15/19801 SOLAR SALES ADVISOR: SOFIA 03/15/19801 RPT#: [id number] DC DATE: STATUS: ADM IN [facility] [address] [place] [address] END OF REPORT
[2019-03-15 10:44] VITALS: BP 138/85
[2019-03-15 13:42] VITALS: BP 141/81
--- NOTE | 2019-03-15 16:17 | MORECARE ---
CASE MANAGEMENT DISCHARGE SUMMARY PATIENT: NOE MARTINEZ UNIT: [id number] ADM DATE: 03/05/19 AGE: 68 : 50 SEX: M ROOM/BED: D.2133 AUTHOR: PAULA SANFORD PHYSICIAN: REFERRING PHYSICIAN: KAILA DIAL MD DATE OF SERVICE: 03/15/19 Discharge Plan Patient Name: NOE MARTINEZ Facility: [facility]:[place] : 1950 Planned Disposition: Home Anticipated Discharge Date: 03/15/19 Discharge Date: Expected LOS: 10 Initial Reviewer: [id number] Initial Review Date: 03/07/2019 Generated: 03/15/19 5:17 pm Comments DCP- Discharge Planning Updated by [email or web address]: Matt Ceron on 03/14/19 4:[address] Patient Name: NOE MARTINEZ Encounter No: [id number] : 1950 Primary Insurance: [facility] MEDICARE SOLUTIONS Anticipated DC Date: Planned Disposition: Fdc Facility External Planned Provider: TO BE DETERMINED DCP follow-up note: CM RECEIVED CALL FROM CM DIRECTOR ROYA WHO ADVISED THAT THERAPY IS RECOMMENDING REHAB FOR PT PRIOR TO GOING HOME. CM MET WITH PT IN ROOM TO DISCUSS DISCHARGE NEEDS AND PLANNING. CM DISCUSSED AVAILABILITY OF HOME HEALTH, REHAB SERVICES AND MEDICAL EQUIPMENT. PT WOULD LIKE TO BE CONSIDERED FOR REHAB AT [facility]. PT STATES HE LIVES ALONE AND HAS NO BATHROOM IN HIS HOME, HE WOULD LIKE TO BE STONGER BEFORE GOING HOME. IMPORTANT MESSAGE FROM MEDICARE PROVIDED AND EXPLAINED. CM TO FOLLOW AND ASSIST NEEDED. CM OBTAINED ORDER FROM ELIDIA ARAGON FOR INPATIENT REHAB PRESCREENING. CM RECEIVED CALL FROM SHAWNA OF [facility] WHO REPORTS PT IS TOO HIGH FUNCTIONING FOR INPATIENT REHAB. CM TO DISCUSS NURSING HOME REHAB OPTIONS WITH PATIENT SOON POSSIBLE. EFREM Martinez DCP- Discharge Planning Updated by [email or web address]: Megan Briscoe on 03/07/19 1:[address] Patient Name: NOE MARTINEZ Admission Status: ER Accout number: [id number] Admission Date: 03-05-2019 : 1950 Admission Diagnosis: Attending: KAILA DIAL Current LOS: 2 Anticipated DC Date: Planned Disposition: Home Primary Insurance: [facility] MEDICARE SOLUTIONS Discharge Planning Comments: CM MET WITH PATIENT AFTER OBTAINING VERBAL CONSENT. STATES PLANS TO DISCHARGE TO HOME. DISCUSSED NEED FOR HH, REHAB OR EQUIPMENT, PATIENT STATES NO NEEDS. CM WILL FOLLOW AND ASSIST NEEDED. Supervisor [employer]spring Fab[employer]ation: Megan Briscoe DCPIA - Discharge Planning Initial Assessment Updated by CESILIA: Matt Ceron on 03/15/19 8:01 am * Is the patient Alert and Oriented? Yes * PCP ROBBY * Pharmacy [facility] * Preadmission Environment Home Alone * ADLs Independent * Equipment Bedside Commode * List name and contact numbers for known caregivers / representatives who currently or will assist patient after discharge: UNCLE LEE, * Community resources currently utilized None * Additional services required to return to the preadmission environment? No * Can the patient safely return to the preadmission environment? Yes * Has this patient been hospitalized within the prior 30 days at any hospital? No Coverage Notice Reviewer: CESILIA Ceron Notice Issued Date-Time: 03/14/2019 14:40 Notice Type: IM Discharge Notice Notice Delivered To: Patient Relationship to Patient: Public Service Director Name: Delivery Method: HAND - Hand Delivered Heather Days: Prior Verbal Notification: Recipient Understood Notice: Yes Recipient Signature: Yes Med Rec Note Co-signed by Attending: Coverage Notice Comment: Reviewer: CESILIA Ceron Notice Issued Date-Time: 03/15/2019 11:20 Notice Type: Patient Choice Letter Notice Delivered To: Patient Relationship to Patient: Public Service Director Name: Delivery Method: HAND - Hand Delivered Heather Days: Prior Verbal Notification: Recipient Understood Notice: Yes Recipient Signature: Yes Med Rec Note Co-signed by Attending: Coverage Notice Comment: 1 - [facility] 2- [facility] Last DP export: 03/15/19 7:03 Patient Name: NOE MARTINEZ Page [id number] at 1617 All edits/amendments must be made on the electronic document DICTATION DATE: 03/15/191616 DINKEY MECHANIC: SOFIA 03/15/191616 RPT#: [id number] DC DATE: STATUS: ADM IN [facility] [address] [place] [address] END OF REPORT
--- NOTE | 2019-03-15 16:27 | MORECARE ---
CASE MANAGEMENT DISCHARGE SUMMARY PATIENT: NOE MARTINEZ UNIT: [id number] ADM DATE: 03/05/19 AGE: 68 : 50 SEX: M ROOM/BED: D.5053 AUTHOR: PAULA SANFORD PHYSICIAN: REFERRING PHYSICIAN: KAILA DIAL MD DATE OF SERVICE: 03/15/19 Discharge Plan Patient Name: NOE MARTINEZ Facility: [facility]:[place] : 1950 Planned Disposition: Home Anticipated Discharge Date: 03/15/19 Discharge Date: Expected LOS: 10 Initial Reviewer: [id number] Initial Review Date: 03/07/2019 Generated: 03/15/19 5:27 pm Comments DCP- Discharge Planning Updated by [email or web address]: Matt Ceron on 03/15/19 3:[address] Patient Name: NOE MARTINEZ Encounter No: [id number] : 1950 Primary Insurance: [facility] MEDICARE SOLUTIONS Anticipated DC Date: 03-15-2019 Planned Disposition: Home DCP follow-up note: CM MET WITH PT IN ROOM TO DISCUSS DISCHARGE PLANNING AND NEEDS. PT DID THINK ABOUT [facility], STATES HE WANTS TO GO HOME. CM OFFERED HOME HEALTH, DISCUSSED AVAILABILITY AND SERVICES. PT STATES HE IS GETTING AROUND FINE AND DOES NOT THINK HE WILL NEED HOME HEALTH BUT WILL ACCEPT IF NECESSARY. PROVIDER LISTING GIVEN, PT SIGNED CONSENT FOR [facility]. PT REPORTS HE DOES NOT HAVE RUNNING WATER IN HIS TRAILOR AND HAS A FAUCET OUTSIDE THE TRAILOR. PT DOES HAVE ELECTRICITY. PT'S PRIMARY CARE IS DR. TAVERAS IN [place] AND PT SAW DR. TAVERAS ABOUT 3 WEEKS AGO. PT REPORTS HE WILL CALL HIS COUSIN TO PICK HIM UP TODAY AND WILL HAVE HIS COUSIN GO BY PT'S HOME TO CLAIMS ADJUSTER CROP SOME CLOTHES FOR PT TO WEAR HOME. PT DENIES NEED OF REHAB SERVICES OR HOME HEALTH. PT PLANS TO DISCHARGE HOME ALONE, FAMILY TO TRANSPORT HOME. CM TO FOLLOW AND ASSIST IF NEEDED. Matt Ceron, CASE MANAGEMENT DCP- Discharge Planning Updated by [id number]: Matt Ceron on 03/14/19 4:[address] Patient Name: NOE MARTINEZ Encounter No: [id number] : 1950 Primary Insurance: [facility] MEDICARE SOLUTIONS Anticipated DC Date: Planned Disposition: Senior Living Facility External Planned Provider: TO BE DETERMINED DCP follow-up note: CM RECEIVED CALL FROM CM DIRECTOR ROYA WHO ADVISED THAT THERAPY IS RECOMMENDING REHAB FOR PT PRIOR TO GOING HOME. CM MET WITH PT IN ROOM TO DISCUSS DISCHARGE NEEDS AND PLANNING. CM DISCUSSED AVAILABILITY OF HOME HEALTH, REHAB SERVICES AND MEDICAL EQUIPMENT. PT WOULD LIKE TO BE CONSIDERED FOR REHAB AT [facility]. PT STATES HE LIVES ALONE AND HAS NO BATHROOM IN HIS HOME, HE WOULD LIKE TO BE STONGER BEFORE GOING HOME. IMPORTANT MESSAGE FROM MEDICARE PROVIDED AND EXPLAINED. CM TO FOLLOW AND ASSIST NEEDED. CM OBTAINED ORDER FROM [facility] ARAGON FOR INPATIENT REHAB PRESCREENING. CM RECEIVED CALL FROM SHAWNA OF [facility] WHO REPORTS PT IS TOO HIGH FUNCTIONING FOR INPATIENT REHAB. CM TO DISCUSS [facility] REHAB OPTIONS WITH PATIENT SOON POSSIBLE. Matt Ceron, CASE MANAGEMENT DCP- Discharge Planning Updated by [email or web address]: Mgean Briscoe on 03/07/19 1:[address] Patient Name: NOE MARTINEZ Admission Status: ER Accout number: [id number] Admission Date: 03-05-2019 : 1950 Admission Diagnosis: Attending: KAILA DIAL Current LOS: 2 Anticipated DC Date: Planned Disposition: Home Primary Insurance: [facility] MEDICARE SOLUTIONS Discharge Planning Comments: CM MET WITH PATIENT AFTER OBTAINING VERBAL CONSENT. STATES PLANS TO DISCHARGE TO HOME. DISCUSSED NEED FOR HH, REHAB OR EQUIPMENT, PATIENT STATES NO NEEDS. CM WILL FOLLOW AND ASSIST NEEDED. Office Machines Wirer: Megan Briscoe DCPIA - Discharge Planning Initial Assessment Updated by [email or web address]: Matt Ceron on 03/15/19 8:01 am * Is the patient Alert and Oriented? Yes * PCP ROBBY * Pharmacy [facility] * Preadmission Environment Home Alone * ADLs Independent * Equipment Bedside Commode * List name and contact numbers for known caregivers / representatives who currently or will assist patient after discharge: UNCLE LEE, * Community resources currently utilized None * Additional services required to return to the preadmission environment? No * Can the patient safely return to the preadmission environment? Yes * Has this patient been hospitalized within the prior 30 days at any hospital? No Coverage Notice Reviewer: [email or web address] Ceron Notice Issued Date-Time: 03/14/2019 14:40 Notice Type: IM Discharge Notice Notice Delivered To: Patient Relationship to Patient: Senior Php Web Developer Name: Delivery Method: HAND - Hand Delivered Heather Days: Prior Verbal Notification: Recipient Understood Notice: Yes Recipient Signature: Yes Med Rec Note Co-signed by Attending: Coverage Notice Comment: Reviewer: [email or web address] Ceron Notice Issued Date-Time: 03/15/2019 11:20 Notice Type: Patient Choice Letter Notice Delivered To: Patient Relationship to Patient: Senior Php Web Developer Name: Delivery Method: HAND - Hand Delivered Heather Days: Prior Verbal Notification: Recipient Understood Notice: Yes Recipient Signature: Yes Med Rec Note Co-signed by Attending: Coverage Notice Comment: 1 - [facility] 2- [facility] Last DP export: 03/15/19 3:17 Patient Name: NOE MARTINEZ Page [id number] at 1627 All edits/amendments must be made on the electronic document DICTATION DATE: 03/15/191626 AUDIOLOGY TECHNICIAN: SOFIA 03/15/191626 RPT#: [id number] DC DATE: STATUS: ADM IN [facility] [address] [place] [address] END OF REPORT
[2019-03-15 18:20] VITALS: BP 138/90
--- NOTE | 2019-03-15 19:10 | NUR ---
BEDSIDE REPORT RECEIVED FROM DAY SHIFT, PT CARE ASSUMED. INTRODUCED SELF AND WROTE NAME ON BOARD. PT LYING IN BED, WATCHING TV, AAOX4. DENIES ANY NEEDS AT THIS TIME. BED IN LOWEST POSITION, SR X2, CALL LIGHT WITHIN REACH. WILL CONTINUE TO MONITOR.
[2019-03-15 20:00] VITALS: BP 141/95
[2019-03-16] VITALS: BP 137/88
[2019-03-16 04:00] VITALS: BP 158/92
[2019-03-16 06:09] LABS: BASOPHILS 0.2 % (0-2); EOSINOPHILS 2.4 % (0-7); HEMATOCRIT 32.6 % (42.0-54.0); HEMOGLOBIN 10.3 g/dL (13.5-17.5); IMMATURE GRANULOCYTES 0.2 % (0-5); LYMPHOCYTES 13.1 % (15-50); MCH 24.2 pg (26.0-34.0); MCHC 31.6 g/dL (31.0-37.0); MCV 76.5 fL (80.0-100.0); MEAN PLATELET VOLUME 10.2 fL (7.4-10.4); MONOCYTES 11.4 % (2-11); NEUTROPHILS 72.7 % (40-80); PLATELET COUNT 415 10x3/uL (130-400); RBC 4.26 10x6/uL (4.20-6.10); RDW 15.2 % (11.5-14.5); WBC 8.3 10x3/uL (4.8-10.8)
--- NOTE | 2019-03-16 06:42 | NUR ---
GREGORIO CATHETER REMOVED, PER ORDER. 8.5 ML NS REMOVED FROM BALLOON, PT TOLERATED WELL. DENIES ANY NEEDS AT THIS TIME. BED IN LOWEST POSITION, SR X2, CALL LIGHT AND URINAL WITHIN REACH. WILL CONTINUE TO MONITOR.
[2019-03-16 06:45] LABS: ALBUMIN 1.9 g/dL (3.4-5.0); BILIRUBIN - TOTAL 0.39 mg/dL (0.2-1.3); CALCIUM 8.4 mg/dL (8.5-10.1); CARBON DIOXIDE 22.7 mmol/L (21.0-32.0); CREATININE - SERUM 1.5 mg/dL (0.6-1.3); MAGNESIUM - SERUM 1.8 mg/dL (1.8-2.4)
[2019-03-16 06:53] LABS: ANION GAP 12.6 mmol/L (8-16); POTASSIUM - SERUM 5.3 mmol/L (3.5-5.1)
--- NOTE | 2019-03-16 07:21 | NUR ---
REPORT RECEIVED. WILL CONTINUE WITH POC. PT CURRENTLY LYING SEMI FOWLERS. CALL LIGHT W/I REACH. PT IS AAO AND UP WITH ASSIST. RR EVEN AND UNLABORED ON RA. NO PIV NOTED. DISCHARGE PLANNING IN PLACE. NO S/S OF DISTRESS NOTED. PT DENIES ANY NEEDS AT THIS TIME. WILL CTM.
[2019-03-16 08:58] VITALS: BP 135/90
--- NOTE | 2019-03-16 11:33 | NUR ---
I have reviewed this patient and I concur with the Shift Assessment completed by the Licensed Practical Nurse today this shift.
[2019-03-16 12:00] VITALS: BP 150/96
[2019-03-16] MEDS ORDERED: FLOMAX0.4 MG PO (12:28)
--- NOTE | 2019-03-16 13:33 | NUR ---
PATIENT HAS NOT HAD A FLU SHOT THIS YEAR UPON ADMIT. WHEN QUESTIONED, HE WOULD LIKE ONE. ORDERED.
--- NOTE | 2019-03-16 13:41 | NUR ---
Nutrition Follow-up: Good appetite/PO intake. Noted plans to d/c today. Diet: Renal ADA PO intake: 100% x 4 meals Wt: 162# Labs noted: Glu 99, K+ 5.3, Alb 1.9 Meds noted: Lactulose, Miralax, Colace, Humalog RD following.
--- NOTE | 2019-03-16 15:19 | NUR ---
PT DISCHARGED HOME VIA WHEELCHAIR WITH FAMILY. PT FAMILY SIGNED PROPER DISCHARGE INSTRUCTION AND REMOVED ALL VALUABLES FROM THE ROOM.
--- NOTE | 2019-03-19 09:24 | MORECARE ---
CASE MANAGEMENT DISCHARGE SUMMARY PATIENT: NOE MARTINEZ UNIT: [id number] ADM DATE: 03/05/19 AGE: 68 : 50 SEX: M ROOM/BED: D.7803 AUTHOR: PAULA SANFORD PHYSICIAN: REFERRING PHYSICIAN: KAILA DIAL MD DATE OF SERVICE: 03/19/19 Discharge Plan Patient Name: NOE MARTINEZ Facility: [facility]:[place] : 1950 Planned Disposition: Home Anticipated Discharge Date: 03/16/19 Discharge Date: 03/16/2019 Expected LOS: 11 Initial Reviewer: [email or web address] Initial Review Date: 03/07/2019 Generated: 03/19/19 10:24 am Comments DCP- Discharge Planning Updated by [email or web address]: Matt Ceron on 03/15/19 3:[address] Patient Name: NOE MARTINEZ Encounter No: [id number] : 1950 Primary Insurance: [facility] MEDICARE SOLUTIONS Anticipated DC Date: 03-15-2019 Planned Disposition: Home DCP follow-up note: CM MET WITH PT IN ROOM TO DISCUSS DISCHARGE PLANNING AND NEEDS. PT DID THINK ABOUT [facility], STATES HE WANTS TO GO HOME. CM OFFERED HOME HEALTH, DISCUSSED AVAILABILITY AND SERVICES. PT STATES HE IS GETTING AROUND FINE AND DOES NOT THINK HE WILL NEED HOME HEALTH BUT WILL ACCEPT IF NECESSARY. PROVIDER LISTING GIVEN, PT SIGNED CONSENT FOR [facility]. PT REPORTS HE DOES NOT HAVE RUNNING WATER IN HIS TRAILOR AND HAS A FAUCET OUTSIDE THE TRAILOR. PT DOES HAVE ELECTRICITY. PT'S PRIMARY CARE IS DR. TAVERAS IN [place] AND PT SAW DR. TAVERAS ABOUT 3 WEEKS AGO. PT REPORTS HE WILL CALL HIS COUSIN TO PICK HIM UP TODAY AND WILL HAVE HIS COUSIN GO BY PT'S HOME TO GLOBAL CTO SOME CLOTHES FOR PT TO WEAR HOME. PT DENIES NEED OF REHAB SERVICES OR HOME HEALTH. PT PLANS TO DISCHARGE HOME ALONE, FAMILY TO TRANSPORT HOME. CM TO FOLLOW AND ASSIST IF NEEDED. Matt Ceron, CASE MANAGEMENT DCP- Discharge Planning Updated by [email or web address]: Matt Ceron on 03/14/19 4:[address] Patient Name: NOE MARTINEZ Encounter No: [id number] : 1950 Primary Insurance: [facility] MEDICARE SOLUTIONS Anticipated DC Date: Planned Disposition: Penitentiary Facility External Planned Provider: TO BE DETERMINED DCP follow-up note: CM RECEIVED CALL FROM CM DIRECTOR ROYA WHO ADVISED THAT THERAPY IS RECOMMENDING REHAB FOR PT PRIOR TO GOING HOME. CM MET WITH PT IN ROOM TO DISCUSS DISCHARGE NEEDS AND PLANNING. CM DISCUSSED AVAILABILITY OF HOME HEALTH, REHAB SERVICES AND MEDICAL EQUIPMENT. PT WOULD LIKE TO BE CONSIDERED FOR REHAB AT [facility]. PT STATES HE LIVES ALONE AND HAS NO BATHROOM IN HIS HOME, HE WOULD LIKE TO BE STONGER BEFORE GOING HOME. IMPORTANT MESSAGE FROM MEDICARE PROVIDED AND EXPLAINED. CM TO FOLLOW AND ASSIST NEEDED. CM OBTAINED ORDER FROM ELIDIA ARAGON FOR INPATIENT REHAB PRESCREENING. CM RECEIVED CALL FROM SHAWNA OF [facility] INPAT[facility] WHO REPORTS PT IS TOO HIGH FUNCTIONING FOR INPATIENT REHAB. CM TO DISCUSS [facility] OPTIONS WITH PATIENT SOON POSSIBLE. Matt Ceron, CASE MANAGEMENT DCP- Discharge Planning Updated by [email or web address]: Megan Briscoe on 03/07/19 1:[address] Patient Name: NOE MARTINEZ Admission Status: ER Accout number: [id number] Admission Date: 03-05-2019 : 1950 Admission Diagnosis: Attending: KAILA DIAL Current LOS: 2 Anticipated DC Date: Planned Disposition: Home Primary Insurance: [facility] MEDICARE SOLUTIONS Discharge Planning Comments: CM MET WITH PATIENT AFTER OBTAINING VERBAL CONSENT. STATES PLANS TO DISCHARGE TO HOME. DISCUSSED NEED FOR HH, REHAB OR EQUIPMENT, PATIENT STATES NO NEEDS. CM WILL FOLLOW AND ASSIST NEEDED. Book Trimmer: Megan Briscoe DCPIA - Discharge Planning Initial Assessment Updated by [id number]: Matt Ceron on 03/15/19 8:01 am * Is the patient Alert and Oriented? Yes * PCP ROBBY * Pharmacy [facility] * Preadmission Environment Home Alone * ADLs Independent * Equipment Bedside Commode * List name and contact numbers for known caregivers / representatives who currently or will assist patient after discharge: UNCLE LEE, * Community resources currently utilized None * Additional services required to return to the preadmission environment? No * Can the patient safely return to the preadmission environment? Yes * Has this patient been hospitalized within the prior 30 days at any hospital? No Coverage Notice Reviewer: [id number] Avery Ceron Notice Issued Date-Time: 03/14/2019 14:40 Notice Type: IM Discharge Notice Notice Delivered To: Patient Relationship to Patient: Lease Broker Name: Delivery Method: HAND - Hand Delivered Heather Days: Prior Verbal Notification: Recipient Understood Notice: Yes Recipient Signature: Yes Med Rec Note Co-signed by Attending: Coverage Notice Comment: Reviewer: [email or web address] Ceron Notice Issued Date-Time: 03/15/2019 11:20 Notice Type: Patient Choice Letter Notice Delivered To: Patient Relationship to Patient: Lease Broker Name: Delivery Method: HAND - Hand Delivered Heather Days: Prior Verbal Notification: Recipient Understood Notice: Yes Recipient Signature: Yes Med Rec Note Co-signed by Attending: Coverage Notice Comment: 1 - [facility] 2- DAND[facility] Last DP export: 03/15/19 3:27 Patient Name: NOE MARTINEZ Page [id number] at 0924 All edits/amendments must be made on the electronic document DICTATION DATE: 03/19/19923 COMMUNITY RELATIONS POLICE LIEUTENANT: SOFIA 03/19/19923 RPT#: [id number] DC DATE:03/16/19 STATUS: DIS IN [facility] [address] [place] [address] END OF REPORT
== END 2019-03-16 15:20 | disposition home or self-care (01) | DRG 291 ==
LOC: D.ER 21:25 → D.M2 22:20 → D.ICU 03-11 16:08 → D.M2 03-13 13:38
PROVIDERS: Emergency Medicine; Family Medicine; ADMIT Internal Medicine Nephrology; ATTEND Internal Medicine Nephrology
DX: I13.0 Hypertensive heart and chronic kidney disease with heart failure and stage 1 through stage 4 chronic kidney disease, or unspecified chronic kidney disease (principal); I50.23 Acute on chronic systolic (congestive) heart failure; N17.9 Acute kidney failure, unspecified; E44.0 Moderate protein-calorie malnutrition; E11.22 Type 2 diabetes mellitus with diabetic chronic kidney disease; N18.9 Chronic kidney disease, unspecified; I42.9 Cardiomyopathy, unspecified; D50.9 Iron deficiency anemia, unspecified; Z68.27 Body mass index [BMI] 27.0-27.9, adult; E78.5 Hyperlipidemia, unspecified; I25.10 Atherosclerotic heart disease of native coronary artery without angina pectoris; K59.00 Constipation, unspecified; N13.9 Obstructive and reflux uropathy, unspecified; N32.0 Bladder-neck obstruction

== ENCOUNTER 2019-05-01 12:59 | Inpatient (IN) | payer MEDICARE, MEDICAID ==
[~2019-05-01] VITALS: Ht 172.7 cm; Wt 84.0 kg
--- NOTE | ~2019-05-01 | HEMODYNAMI ---
PATIENT:NOE MARTINEZ MEDICAL RECORD: [id number] : 50 [id number] ADMISSION DATE: 05/01/19 Generatedon:05/03/201913:45 Patient name: NOE MARTINEZ Patient #: [id number] SSN: D OB: 1950 Date of study: 05/02/2019 Page: Of Hemodynamic Procedure Report Patient Data Patient Demographics Procedure consent was obtained First Name: NOE Gender: Male Last Name: MICHELLE : 1950 [facility] Initial: VERITO Age: 68 year(s) Patient #: [id number] Race: Black Additional ID: [id number] Contact details Address: [address] [place] State: [place] City: [place] Zip code: [address] Past Medical History Allergies: No known allergies Admission Admission Data Admission Date: 05/01/2019 Admission Time: 13:01 Arrival Date: 05/02/2019 Arrival Time: 0:00 Room #: D.2115 Insurance Payor: Private health insurance [facility] #: [id number] Height (in.): 69 BSA: 1.96 (m2) Height (cm.): 175.26 BMI: 25.99 (kg/m2) Weight (lbs.): 176 Weight (kg.): 79.83 Procedure Procedure Types Cath Procedure Diagnostic Procedure LHC [facility] w/Coronaries FFR/IVUS FFR Initial FFR Additional Sedation Charges Moderate Sedation up to 30 minutes PCI Procedure Coronary Stent Coronary Stent Initial x2 Hemochron ACT Test Procedure Description Procedure Date Procedure Date: 05/02/2019 Procedure Start Time: 11:15 Procedure End Time: 11:52 Procedure Staff Name Function Solitario Harvey RN Nurse Rich Crawford MD Performing Physician Taryn Burgos RT Monitor Macrina Sotelo RT Monitor Chey Hardin RT Scrub Procedure Data Cath Procedure Fluoroscopy Diagnostic fluoroscopy Total fluoroscopy Time: time: 10.7 min 10.7 min Diagnostic fluoroscopy Total fluoroscopy dose: dose: 1643 mGy 1643 mGy Contrast Material Contrast Material Type Amount (ml) Isovue 300 152 Entry Location Entry Primary Successful Side Size Upsize Upsize Entry Closure Succes sful Closure Location (Fr) 1 (Fr) 2 (Fr) Remarks Device Remarks Femoral Right 5 Fr 6 Fr Exoseal artery Short Estimated blood loss: 10 ml Diagnostic catheters Device Type Used For End Catheter Placement MULTIPACK Pigtail 5 Fr LV Angiography catheter MULTIPACK JL 4.0 5Fr Left Coronary catheter Angiography MULTIPACK 3DRC 5Fr Right Coronary catheter Angiography Procedure Complications No complications Procedure Medications Medication Administration Route Dosage Oxygen etCO2 Nasal cannula 2 l/min Lidocaine 2% added to field 20 Heparin Flush Bag added to field 2 bags (1000units/500ml NS) 0.9% NaCl I.V. 100 ml/hr Versed I.V. 1 mg Fentanyl I.V. 50 mcg Dobutamine I.V. drip 5 mcg/kg/min (500mg/250ml D5W) Heparin Bolus I.V. 4000 units Fentanyl I.V. 50 mcg Versed I.V. 1 mg Hemodynamics Rest BSA: 1.96 (m2) O2 Consumption: Estimated: 235.51 (ml/min) O2 Consumption indexed : Estimated:120.16 (ml/min/m) Heart Rate: 81 (bpm) Snapshots Pre Cath Intra NCS Post Cath Vital Signs Time Heart Resp SPO2 etCO2 NIBP (mmHg) Rhythm Pain Sedation Rate (ipm) (%) (mmHg) Status Level (bpm) 11:03:45 80 12 99 0 132/89(113) NSR 0 (11) 10(A) , No pain 11:07:47 77 24 100 19.5 137/88(114) NSR 0 (11) 10(A) , No pain 11:12:54 88 21 100 21.7 149/87(113) NSR 0 (11) 10(A) , No pain 11:17:06 81 18 98 20.2 144/79(112) NSR 0 (11) 10(A) , No pain 11:21:14 78 14 97 26.3 131/82(109) NSR 0 (11) 9(A) , No pain 11:25:18 80 16 97 24 146/86(103) NSR 0 (11) 9(A) , No pain 11:29:27 81 15 98 27 142/82(124) NSR 0 (11) 9(A) , No pain 11:33:35 82 15 98 0 134/82(108) NSR 0 (11) 9(A) , No pain 11:37:41 81 16 98 25.5 136/80(110) NSR 0 (11) 9(A) , No pain 11:41:49 78 15 96 26.2 135/76(105) NSR 0 (11) 10(A) , No pain 11:45:59 83 17 96 23.2 130/72(106) NSR 0 (11) 10(A) , No pain 11:50:04 77 30 96 18 133/79(110) NSR 0 (11) 10(A) , No pain Medications Time Medication Route Dose Verified Delivered Reason Notes Effectiveness by by 11:03:35 Dobutamine I.V. 5 Richericka Stevensonie Per physician continued (500mg/250ml drip mcg/kg/min Ty Harvey RN from [address]) floor via smart pump 11:05:54 Oxygen etCO2 2 l/min Rich Jerez used for Nasal Ty Harvey RN procedure cannula 11:06:02 Lidocaine 2% added 20ml vial Rich Villanueva for local to Ty Crawford MD anesthetic field 11:06:09 Heparin Flush added 2 bags Rich Villanueva used for Bag to Ty Crawford MD procedure (1000units/500ml field NS) 11:06:25 0.9% NaCl I.V. 100 ml/hr Rich Jerez Per physician Ty Harvey RN 11:14:20 Versed I.V. 1 mg Rich Jerez for sedation Ty Harvey RN 11:14:25 Fentanyl I.V. 50 mcg Rich Jerez for sedation Ty Harvey RN 11:22:25 Heparin Bolus I.V. 4000 units Rich Jerez for verified Ty Harvey RN anticoagulation with dr crawford 11:28:14 Versed I.V. 1 mg Rich Jerez for sedation Ty Harvey RN 11:28:21 Fentanyl I.V. 50 mcg Rich Jerez for sedation Ty Harvey RN Procedure Log Time Note 10:36:50 Informed consent obtained and on chart 10:37:20 Procedure Status Urgent Heart Cath (IP). 10:37:22 Time tracking: Regular hours (M-F 7:00 - 5:00) 10:37:25 Plan of Care:Hemodynamics will remain stable., Cardiac rhythm will remain stable., Comfort level will be maintained., Respiratory function will remain adequate., Patient/ family verbilizes understanding of procedure., Procedure tolerated without complication., Recovers from procedure without complications.. 10:37:27 Solitario Harvey RN sent for patient. Start room use. 10:56:46 Arrival Date: 05/02/2019 12:00:00 AM 11:02:35 Patient received from Med II to CCL 1 Alert and oriented. Tansferred to table in Supine position. 11:02:36 Warm blankets applied, and iram hugger turned on for patient comfort. 11:02:37 ECG and BP/O2 sat monitors applied to patient. 11:02:37 Correct patient and procedure confirmed by team. 11:02:39 Vital chart was started 11:02:39 Baseline sample Acquired. 11:02:46 Rhythm: sinus rhythm 11:02:47 Full Disclosure recording started 11:02:54 H&P Date Dictated: 05/02/2019 Within 30 days and on chart.. 11:02:57 Pre-op teaching completed and patient verbalized understanding. 11:02:57 Pre-procedure instructions explained to patient. 11:02:58 Family unavailable. 11:03:00 Patient NPO since Midnight. 11:03:04 Patient allergic to No known allergies 11:03:06 Is patient on blood thinner?Yes 11:03:08 ACC The patient was administered the following blood thiners within the last 24 hours: ACCPlavix 11:03:11 Patient diabetic? Yes. 11:03:12 If diabetic: On Metformin? Yes 11:03:14 If on Metformin: Last Dose? 05/01/2019 11:03:17 Previous problem with sedation/anesthesia? No ? 11:03:18 Snore? No 11:03:19 Sleep apnea? No 11:03:20 Deviated septum? No 11:03:21 Opens mouth fully? Yes 11:03:22 Sticks out tongue? Yes 11:03:23 Airway obstruction? No ? 11:03:26 Dentures? Yes OUT 11:03:29 Pre procedure: right dorsailis pedis pulse 1+ Palpable, but thready & weak; easily obliterated 11:03:35 Dobutamine (500mg/250ml D5W) 5 mcg/kg/min I.V. drip was administered by Solitario Harvey RN; Per physician; continued from [facility] via smart pump Verbal order read back and verified. 11:03:36 Patient pain scale 0/10 SHORTNESS OF BREATH. 11:03:48 IV patent on arrival in right hand with 0.9% NaCl at [facility]. 11:05:54 Oxygen 2 l/min etCO2 Nasal cannula was administered by Solitario Harvey RN; used for procedure; Verbal order read back and verified. 11:06:02 Lidocaine 2% 20ml vial added to field was administered by Rich Crawford MD; for local anesthetic; Verbal order read back and verified. 11:06:05 UNABLE TO DOCUMENT LABS. [employer]. PROCEED WITH PROCEDURE PER DR. CRAWFORD 11:06:09 Heparin Flush Bag (1000units/500ml NS) 2 bags added to field was administered by Rich Crawford MD; used for procedure; Verbal order read back and verified. 11:06:12 Right groin area was prepped with chlora-prep and draped in sterile fashion 11:06:13 Alarms reviewed by R. N. 11:06:25 0.9% NaCl 100 ml/hr I.V. was administered by Solitario Harvey RN; Per physician; Verbal order read back and verified. 11:07:46 Use device set Femoral Dx 11:07:47 ACIST Syringe (87302) opened to sterile field. 11:07:48 Medline Cath Pack ([id number]) opened to sterile field. 11:07:48 Bag Decanter (2001S) opened to sterile field. 11:07:49 ACIST Hand Control (17296) opened to sterile field. 11:07:50 Tegaderm 4 x 4 (1626W) opened to sterile field. 11:07:50 ACIST Manifold (56706) opened to sterile field. 11:07:52 DIAGNOSTIC Multipack 5Fr catheter set ([id number]) opened to sterile field. 11:07:53 EMERALD Guide Wire (296-327) opened to sterile field. 11:07:53 SHEATH 5FR Romulus (VGV326) opened to sterile field. 11:09:45 Insurance Payor : Private health insurance 11:10:07 Patient Height : 69 inches 11:10:14 Patient Weight : 176 lbs 11:13:08 Sharps counted by scrub and verified by R.N. 11:13:14 Physician arrived 11:13:15 --------ALL STOP TIME OUT------ 11:13:16 Final Timeout: patient, procedure, and site verified with staff and physician. All members of the team are in agreement. 11:13:18 Right groin site verified by team. 11:13:25 Fire Safety Assessment: A--An alcohol-based skin anteseptic being used preoperatively., C--Open oxygen or nitrous oxide is being used., D--An ESU, laser, or fiber-optic light is being used. 11:13:30 Physical assessment completed. ASA score P 2 - A patient with mild systemic disease as per Rich Crawford MD. 11:13:53 Sedation plan: IV Moderate Sedation Medication:Versed, Fentanyl 11:14:20 Versed 1 mg I.V. was administered by Solitario Harvey RN; for sedation; Verbal order read back and verified. 11:14:25 Fentanyl 50 mcg I.V. was administered by Solitario Harvey RN; for sedation; Verbal order read back and verified. 11:14:59 Procedure started. 11:15:10 Local anesthetic to right femoral artery with Lidocaine 2% by Rich Crawford MD.INITIAL ACCESS ONLY 11:15:29 Zero performed for pressure channel P1 11:15:39 Zero performed for pressure channel P1 11:16:02 A 5 Fr sheath was inserted into the Right Femoral artery 11:16:15 A MULTIPACK Pigtail 5 Fr catheter was advanced over the wire and used for LV Angiography. 11:16:23 LV gram done using TEE 11:16:28 Injector settings: Ml/sec: 10, Volume: 20, 11:16:51 EF : 15 % 11:16:54 Catheter removed. 11:17:02 A MULTIPACK JL 4.0 5Fr catheter was advanced over the wire and used for Left Coronary Angiography. 11:17:46 Injector settings: Ml/sec: 3, Volume: 6, 11:18:26 Catheter removed. 11:18:34 A MULTIPACK 3DRC 5Fr catheter was advanced over the wire and used for Right Coronary Angiography. 11:18:49 SHEATH 6FR Romulus (XIP718) opened to sterile field. 11:19:18 GUIDE 6FR XBLAD 4.0 catheter ([id number]) opened to sterile field. 11:19:20 Blodgett Verrata Plus pressure wire (00878F) opened to sterile field. 11:19:20 INFLATOR Merit BasfuentesCompak (ML3374) opened to sterile field. 11:19:29 Injector settings: Ml/sec: 3, Volume: 6, 11:19:44 Catheter removed. 11:19:53 Proceeding to intervention. 11:19:57 ACCDominant side:Left 11:20:11 Sheath upsized to a 6 Fr Short. 11:21:14 6 Fr XBLAD4 guide catheter was inserted over the wire 11:21:32 FFR/IFR wire advanced. 11:22:25 Heparin Bolus 4000 units I.V. was administered by Solitario Harvey RN; for anticoagulation; verified with dr crawford Verbal order read back and verified. 11:23:19 Wire advanced across lesion. 11:23:54 mLAD lesion measured at .76 with IFR 11:24:35 Pre PCI Site: [place] mLAD has 80% stenosis. 11:26:35 Place stent Inflation Number: 1 A KOKO RX 2.5 x 18 stent ([id number]) was prepped and advanced across the Mid LAD . The stent was deployed at 13 DEN for 0:10 (min:sec) . 11:26:56 Inflation number: 2 The stent balloon was then re-inflated across the Mid LAD to 11 DEN for 0:00 (min:sec) . 11:27:38 Stent catheter was removed intact over wire. 11:27:53 Wire redirected to CIRC. 11:28:14 Versed 1 mg I.V. was administered by Solitario Harvey RN; for sedation; Verbal order read back and verified. 11:28:21 Fentanyl 50 mcg I.V. was administered by Solitario Harvey RN; for sedation; Verbal order read back and verified. 11:29:37 Wire advanced across lesion. 11:29:46 mCirc lesion measured at 0.95 with IFR 11:30:01 Wire removed. 11:30:02 Guide catheter removed. 11:30:06 GUIDE 6FR HS I catheter (LA6HSI) opened to sterile field. 11:30:26 Pre PCI Site: [place] mRCA has 90% stenosis. 11:30:38 6 Fr HS1 guide catheter was inserted over the wire 11:31:05 CHOICE PT Extra Support 182cm wire ([id number]) opened to sterile field. 11:31:35 CHOICE PT 182 wire advanced. 11:31:57 GUIDE 6FR HS I SH catheter ([id number]) opened to sterile field. 11:32:07 Wire removed. 11:32:19 Guide Catheter removed. pressure damping. 11:32:33 6 Fr HS1SH guide catheter was inserted over the wire 11:33:37 CHOICE 182 wire advanced. 11:34:10 Wire removed. 11:34:29 WHISPER 190cm wire ([id number]) opened to sterile field. 11:34:56 ACT drawn and resulted at OUT OF RANGE seconds. (normal therapeutic range 180-240 seconds). 11:35:14 WHISPER 190 wire advanced. 11:35:23 Wire advanced across lesion. 11:36:53 The KOKO RX 2.0 x 12 stent ([id number]) was advanced then removed because of failure to cross lesion 11:37:00 Stent catheter was removed intact over wire. 11:38:15 Inflate balloon Inflation number: 1 A EUPHORA 2.0 x 15 Balloon ([id number]) was prepped and advanced across the Mid RCA , then inflated to 13 DEN for 0:10 (min:sec) . 11:38:28 Inflation number: 2 The EUPHORA 2.0 x 15 Balloon ([id number]) was reinflated across the Mid RCA , to 13 DEN for 0:00 (min:sec) . 11:38:48 Balloon removed over the wire. 11:41:22 Inflation number: 3 The EUPHORA 2.0 x 15 Balloon ([id number]) was reinflated across the Mid RCA , to 9 DEN for 0:00 (min:sec) . 11:41:35 Inflation number: 4 The EUPHORA 2.0 x 15 Balloon ([id number]) was reinflated across the Mid RCA , to 17 DEN for 0:00 (min:sec) . 11:41:53 Inflation number: 5 The EUPHORA 2.0 x 15 Balloon ([id number]) was reinflated across the Mid RCA , to 17 DEN for 0:00 (min:sec) . 11:42:21 Balloon removed over the wire. 11:43:29 GRAPHIX 182cm guide wire ([id number]) opened to sterile field. 11:43:53 PT GRAPHIX INSERTED RENE WIRE. 11:45:16 RENE WIRE REMOVED. 11:46:20 Place stent Inflation Number: 7 A KOKO RX 2.0 x 12 stent ([id number]) was prepped and advanced across the Mid RCA . The stent was deployed at 13 DEN for 0:00 (min:sec) . 11:46:35 Wire removed. 11:46:36 Guide catheter removed. 11:46:38 Stent catheter was removed intact over wire. 11:46:50 EXOSEAL 6Fr (EX600) opened to sterile field. 11:47:13 Sheath removed intact; hemostasis achieved with Exoseal to the Right Femoral artery. 11:47:16 Procedure ended.(Physican Out) 11:48:02 Contrast amount:Isovue 300 152ml. 11:48:15 Fluoroscopy time 10.70 minutes. 11:48:26 Flurop Dose total: 1643 11:48:26 Fluoroscopy dose: 1643 mGy 11:48:34 Dose Area Product 27053 mGy/cm. 11:48:43 Sharps counted by scrub and verified by R.N. 11:48:46 Insertion/operative site no bleeding no hematoma. 11:48:54 Post-op/insertion site Right Femoral artery dressed using a 4 x 4 and Tegaderm. 11:49:02 Post Procedure Pulses reassessed and unchanged 11:49:06 Post-procedure physical assessment completed. ASA score P 2 - A patient with mild systemic disease as per Rich Crawford MD. 11:49:11 Post procedure rhythm: unchanged. 11:49:16 Estimated blood loss: 10 ml 11:49:21 Post procedure instruction explained to patient.Patient verbalizes understanding. 11:49:22 Patient needs reinforcement of post procedure teaching. 11:50:43 Procedure type changed to Cath procedure, Diagnostic procedure, LHC, LHC w/Coronaries, FFR/IVUS, FFR Initial, FFR Additional, Sedation Charges, Moderate Sedation up to 30 minutes, PCI procedure, Coronary Stent, Coronary Stent Initial x2, Hemochron ACT Test 11:50:46 Procedure and supply charges have been captured, reviewed, submitted and are correct. 11:51:46 Procedure Complication : No complications 11:51:50 Vital chart was stopped 11:52:01 [facility] Findings: MVD- PCI performed (see procedure note) 11:52:03 Operative report dictated upon procedure completion. 11:52:05 See physician's report for complete and final results. 11:52:11 Report given to [facility]. 11:52:16 Patient transfered to [facility] with Bed. 11:52:19 Procedure ended. 11:52:19 Full Disclosure recording stopped 11:52:34 ACC-PCI Only Patient was given prescriptions, or instructed by Rich Crawford MD to start/continue the following medications upon discharge: Plavix 11:52:36 End room use (Document Last) Intervention Summary Intervention Notes Time ActionType Lesion and Equipment Used Action# Pressure Duration Attributes 11:26:35 Place stent Mid LAD KOKO RX 2.5 x 1 13 00:10 18 stent ([id number]) 11:26:56 Reinflate Mid LAD KOKO RX 2.5 x 2 11 00:00 stent 18 stent balloon ([id number]) 11:36:53 Discard Mid RCA KOKO RX 2.0 x Stent 12 stent ([id number]) 11:38:15 Inflate Mid RCA EUPHORA 2.0 x 1 13 00:10 balloon 15 Balloon ([id number]) 11:38:28 Reinflate Mid RCA EUPHORA 2.0 x 2 13 00:00 balloon 15 Balloon ([id number]) 11:41:22 Reinflate Mid RCA EUPHORA 2.0 x 3 9 00:00 balloon 15 Balloon ([id number]) 11:41:35 Reinflate Mid RCA EUPHORA 2.0 x 4 17 00:00 balloon 15 Balloon ([id number]) 11:41:53 Reinflate Mid RCA EUPHORA 2.0 x 5 17 00:00 balloon 15 Balloon ([id number]) 11:46:20 Place stent Mid RCA KOKO RX 2.0 x 7 13 00:00 12 stent ([id number]) Device Usage Item Name Manufacture Quantity Catalog Number Hospital Part Current Minimal Lot# / Charge Number Stock Stock Serial# Code ACIST Syringe Acist 1 48590 271081 485383 325966 20 (71692) Medical Systems Inc Bag Decanter Microtek 1 2001S 960332 98749 591443 5 (2001S) Medical Inc. Medline Cath Medline 1 [id number] 576610 13891 217695 5 Pack ([id number]) ACIST Hand Acist 1 55362 579033 749806 215730 5 Control Medical (07072) Systems Inc ACIST Manifold Acist 1 29500 849308 660783 451576 5 (78048) Medical Systems Inc Tegaderm 4 x 4 3M 1 1626W 285799 195503 020089 5 (1626W) DIAGNOSTIC Cardinal 1 TI5860 115517 02778 973889 30 Multipack 5Fr Health catheter set (XV8727) SHEATH 5FR Terumo 1 WPG171 837631 487673 876458 5 Romulus (AJE104) EMERALD Guide Cardinal 1 502-455 878390 005029 276730 5 Wire (502-455) Health MULTIPACK Cardinal 1 093365 5 Pigtail 5 Fr Health catheter MULTIPACK JL Cardinal 1 547233 5 4.0 5Fr Health catheter MULTIPACK 3DRC Cardinal 1 401709 5 5Fr catheter Health SHEATH 6FR Terumo 1 NII318 034442 874393 930202 40 Romulus (LWH787) GUIDE 6FR Cardinal 1 [id number] 120747 679576 195128 3 XBLAD 4.0 Health catheter (03635616) INFLATOR Merit Merit 1 PP1136 091415 437937 027192 15 [facility] (AB9285) Blodgett Blodgett 1 59808S 778861 809871807 833813 5 Verrata Plus pressure wire (24752W) KOKO RX 2.5 x Medtronic 1 [id number] 511082 7537370 452888 5 [id number] 18 stent ([id number]) GUIDE 6FR HS I Medtronic 1 LA6HSI 416794 48641 074536 1 catheter (LA6HSI) CHOICE PT [place] 1 [id number] 961816 324993 167210 5 Extra Support Scientific 182cm wire ([id number]) GUIDE 6FR HS I Medtronic 1 [id number] 599035 56564 327538 1 SH catheter ([id number]) WHISPER 190cm Lui 1 [id number] 009989 304388 479636 5 wire Vascular ([id number]) KOKO RX 2.0 x Medtronic 2 [id number] 121241 5402748 575959 5 [id number] 12 stent [id number] ([id number]) EUPHORA 2.0 x Medtronic 1 [id number] 161257 709810 236762 5 [id number] 15 Balloon ([id number]) GRAPHIX 182cm [place] 1 [id number] 255931 254671 004909 5 guide wire Scientific (4622048T0) EXOSEAL 6Fr Cardinal 1 EX600 408829 604011 838214 10 (EX600) Health Signature Audit [place] Stage Time Signature Unsigned Intra-Procedure 05/02/2019 Taryn 11:54:40 AM Loretta RT(R) (CV) Intra-Procedure 05/02/2019 Solitario Harvey RN 11:55:17 AM Intra-Procedure 05/02/2019 Rich Crawford MD 11:56:22 AM 05/03/2019 1:42:46 PM Intra-Procedure 05/03/2019 Rich Crawford 1:45:11 PM [facility] [address] [facility] [address]
--- NOTE | ~2019-05-01 | DS ---
PATIENT:NOE MENDES :50 MEDICAL RECORD: [id number] DISCHARGE SUMMARY ADMISSION DATE: 05/01/19 DISCHARGE DATE: 05/03/19 DISCHARGE DIAGNOSES: 1. Unstable angina. 2. Percutaneous transluminal coronary angioplasty and stent to the left anterior descending and right coronary artery this admission. 3. Congestive heart failure, chronic systolic dysfunction. 4. Ischemic cardiomyopathy. 5. Hypertension. 6. Hyperlipidemia. HOSPITAL COURSE: Mr. Mendes presents with heart failure symptomatology, edema, shortness of breath as well as angina, underwent dobutamine and Lasix therapy, had cleared his edema and pulmonary edema, underwent cardiac catheterization revealing significant disease of the LAD and RCA, underwent successful PTCA and stent of both territories, was discharged home with no change in medications as he is already on aspirin, Plavix, statin, and Lasix. Will follow up with [facility] 1 month. TRANSINT:[id number] Voice Confirmation ID: [id number] DOCUMENT ID: [id number] JOSH SEYMOUR MD CC: [id number] DICTATION DATE: 05/03/19 1320 STICK ROLLER: 05/04/19 0120 DIS IN 05/03/19 [facility] [address] [id number]
[~2019-05-01 12:59] MED LIST changes: +FLOMAX0.4 MG PO
[2019-05-01 14:15] VITALS: BP 139/86; BMI 27.0
[2019-05-01 15:06] VITALS: BP 133/85
--- NOTE | 2019-05-01 15:19 | NUR ---
IV STARTED TO RIGHT HAND BY BLKE DOGGER. LINE IS PATENT.
[2019-05-01 18:11] LABS: EOSINOPHILS 1.9 % (0-7); HEMATOCRIT 35.3 % (42.0-54.0); HEMOGLOBIN 10.9 g/dL (13.5-17.5); LYMPHOCYTES 15.7 % (15-50); MCH 23.3 pg (26.0-34.0); MCHC 30.9 g/dL (31.0-37.0); MCV 75.4 fL (80.0-100.0); MEAN PLATELET VOLUME 10.6 fL (7.4-10.4); MONOCYTES 8.6 % (2-11); NEUTROPHILS 72.8 % (40-80); PLATELET COUNT 398 10x3/uL (130-400); RBC 4.68 10x6/uL (4.20-6.10); RDW 18.6 % (11.5-14.5); WBC 5.2 10x3/uL (4.8-10.8)
[2019-05-01 18:56] LABS: CALC OSMOLALITY 275 mosm/kg (275-300); CALCIUM 8.1 mg/dL (8.5-10.1); CARBON DIOXIDE 19.4 mmol/L (21.0-32.0); CHLORIDE - SERUM 106 mmol/L (98-107); CHOL - HDL RATIO 2.3 ratio (2.3-4.9); CHOLESTEROL, TOTAL 103 mg/dL (0-200); CKMB 1.9 U/L (0.0-3.6); CREATINE KINASE 475 UL (21-232); CREATININE - SERUM 1.8 mg/dL (0.6-1.3); GLUCOSE 109 mg/dL (74-106); HDL CHOLESTEROL 44 mg/dL (32-96); LDL CHOLESTEROL 45 mg/dL (0-100); SODIUM 133 mmol/L (136-145); TRIGLYCERIDE 70 mg/dL (30-200); TROPONIN-I 0.041 ng/mL (0.000-0.060); UREA NITROGEN 38 mg/dL (7-18); eGFR NON AFRICAN AMERICAN 40 mL/min (90-120)
--- NOTE | 2019-05-01 19:01 | NUR ---
RECEIVED BEDSIDE REPORT. PATIENT IS ALERT AND ORIENTED, RESTING COMFORTABLY IN BED. RESPIRATION ARE EVEN ANDC UNLABORED. NO S/S OF DISTRESS. NO C/O PAIN. CALL LIGHT WITHIN REACH.
[2019-05-01 19:04] LABS: ALT (SGPT) 76 U/L (10-68)
[2019-05-01 19:05] LABS: POTASSIUM - SERUM 13.7 mmol/L (3.5-5.1)
--- NOTE | 2019-05-01 19:13 | NUR ---
CRITICAL LAB CALLED TO DR. SANTANA. POTASSIUM OF 13.7. ORDERS GIVEN TO HAVE LAB REDRAWN. ORDER FOR REDRAW IN.
[2019-05-01 20:00] VITALS: BP 138/86
--- NOTE | 2019-05-01 21:22 | NUR ---
CALLED LAB FOR THE RESULTS ON THE POTASSIUM REDRAW. WAS TOLD THE HAD TO DO IT MANUALLY BECAUSE THE INTERFACE WENT DOWN.
--- NOTE | 2019-05-01 21:40 | NUR ---
INFORMED BY CERTIFIED TECHNICIAN THAT PATIENT HAD A A 8 BEAT RUN OF V TACH. ASSESSES PATIENT. PATIENT IS ALERT AND ORIENTED, RESTING COMFORTABLY IN BED. NO S/S OF DISTRESS. NO C/O PAIN. CALL LIGHT WITHIN REACH. WILL CPOC.
--- NOTE | 2019-05-01 22:51 | NUR ---
PATIENT IS ALERT AND ORIENTED, SITTING UP IN BED. PATIENT REQUESTED AND SANDWICH BOX. NEED MET. RESPIRATIONS ARE EVEN AND UNLABORED. NO S/S OF DISTRESS. NO C/O PAIN. CALL LIGHT WITHIN REACH. WILL CPOC.
--- NOTE | 2019-05-01 23:39 | NUR ---
INFORMED BY HYDRAULIC ELEVATOR CONSTRUCTOR THAT THE PATIENT HAD A 15 BEAT RUN OF V TACH. ASSESSED PATIENT. PATIENT IS ALERT AND ORIENTED. CURRENTLY USING THE URINAL. NO S/S OF DISTRESS. NO C/O PAIN. CALL LIGHT WITHIN REACH. WILL CPOC.
[2019-05-02] VITALS: BP 131/72
[2019-05-02 04:00] VITALS: BP 138/76
--- NOTE | 2019-05-02 04:14 | NUR ---
INFORMED BY GLASS LAMINATING OPERATOR PATIENT HAS A 15 BEAT RUN OF V TACH. ASSESSED PATIENT. PATIENT CURRENTLY USING URINAL. NO S/S OF DISTRESS. NO C/O PAIN. CALL LIGHT WITHIN REACH. WILL CPOC.
[2019-05-02 08:00] VITALS: BP 146/90
--- NOTE | 2019-05-02 10:57 | NUR ---
PRE-OPS GIVEN. TO BELLPERSON BY BED.
--- NOTE | 2019-05-02 12:19 | NUR ---
BACK FROM [employer] SALES REPRESENTATIVE. VS WNL. RIGHT GROIN STABLE WITHOUT BLEEDING OR HEMATOMA NOTED. WILL MONITOR.
[2019-05-02 13:31] VITALS: Ht 172.7 cm; Wt 84.0 kg
[2019-05-02 16:00] VITALS: BP 129/79
--- NOTE | 2019-05-02 16:01 | NUR ---
BED REST UP. GROIN STABLE.
[2019-05-02 19:00] VITALS: BP 139/79
--- NOTE | 2019-05-02 19:13 | NUR ---
RECEIVED BEDSIDE REPORT. PATIENT IS ALERT AND ORIENTED, RESTING COMFORTABLY IN BED. RESPIRATIONS ARE EVEN AND UNLABORED. NO S/S OF DISTRESS. NO C/O PAIN. CALL LIGHT WITHIN REACH. NEEDS MET. WILL CPOC.
[2019-05-03] VITALS: BP 142/81
--- NOTE | 2019-05-03 01:17 | NUR ---
PATIENT AWAKE WATCHING TV. RESPIRATIONS ARE EVEN AND UNLABORED. NO S/S OF DISTRESS. NO C/O PAIN. CALL LIGHT WITHIN REACH. WILL CPOC.
[2019-05-03 04:00] VITALS: BP 139/81
--- NOTE | 2019-05-03 07:15 | NUR ---
RECEIVED PT IN BED AAOX4 RESP UNLABORED SKIN W/D COLOR WNL DENIES ANY NEEDS OR DISCOMFORT NAD NOTED
[2019-05-03 09:49] VITALS: BP 107/69
--- NOTE | 2019-05-03 13:18 | OP ---
PATIENT NAME: NOE MARTINEZ MEDICAL RECORD: [id number] :50 LOCATION:D.M2 D.2115 ADMISSION DATE:05/01/19 SURGEON: JOSH SEYMOUR MD DATE OF OPERATION: 05/02/2019 DATE OF SERVICE: 05/02/2019 PROCEDURES: 1. PTCA stent LAD. 2. PTCA stent RCA. 3. IFR LAD. 4. IFR, left circumflex. 5. Left heart catheterization. 6. Selective coronary angiography. 7. Left ventriculogram. PROCEDURE IN DETAIL: After informed consent was obtained and after a detailed description of risks, benefits as well as alternative therapies, the patient elected to proceed with angiogram and angioplasty. The right femoral area was prepped and draped in normal sterile fashion. Right femoral artery was cannulated via modified Seldinger technique with placement of 6-Croatian sheath. All catheters exchanged through this sheath. FINDINGS: Left ventriculogram was performed in normal standard 30-degree TEE view reveals global hypokinesis, ejection fraction of 15%. SELECTIVE CORONARY ANGIOGRAPHY: 1. Left main showed no significant angiographic disease. 2. Left anterior descending has previously placed stents. There is 80% in-stent restenosis of the distal stent and the IFR was abnormal at 0.76. 3. Left circumflex has a questionable stenosis in the mid vessel; however, IFR was normal at 0.95. 4. The right coronary has previously placed stent; just after this, there is 90% stenosis. PTCA STENT OF THE LAD: The stent used is a 2.5 x 18 mm [place]. Result was 0% residual stenosis. PTCA STENT OF THE RCA: The stent used is a 2.0 x 12 mm [place]. Result was 0% residual stenosis. OVERALL IMPRESSION: Successful percutaneous transluminal coronary angioplasty stent of the left anterior descending and right coronary artery, both going from 80% to 90% initial stenosis to 0% residual. TRANSINT:[id number] Voice Confirmation ID: [id number] DOCUMENT ID: [id number] OPERATIVE REPORT [id number] MICHELLENOE JOSH SARKAR MD at 1318 CC: [id number] DICTATION DATE: 05/02/19 1150 AUTOMATIC MAINTAINER: 05/02/19 1323 ADM IN [place] [address] [place] [address]
--- NOTE | 2019-05-03 13:18 | HP ---
PATIENT: NOE MARTINEZ MEDICAL RECORD: [id number] ACCOUNT: [id number] LOCATION:[address] : 50 ADMISSION DATE: 05/01/19 PCP: WILDER BUSTAMANTE MD HISTORY AND PHYSICAL EXAMINATION DIAGNOSES: 1. Congestive heart failure. 2. Unstable angina. 3. Coronary artery disease. 4. Previous multivessel percutaneous transluminal coronary angioplasty stent. 5. Cardiomyopathy, chronic systolic dysfunction. 6. Edema. 7. Shortness of breath, dyspnea on exertion. 8. Noninsulin-dependent diabetes. 9. Hypertension. HISTORY OF PRESENT ILLNESS: Mr. Martinez has been seen in our clinic for the past 2 weeks with increasing angina, increasing shortness of breath, decompensated heart failure. His medications were adjusted. He had an increase in his Lasix. He has had worsening shortness of breath, dyspnea on exertion, and lower extremity edema despite this. MEDICATIONS: His current medical regimen includes aspirin, Plavix, Lasix, glyburide, losartan, metformin, metoprolol, Norvasc, Aldactone. FAMILY HISTORY: Positive for hypertension and coronary artery disease. SOCIAL HISTORY: Retired, lives in [facility]. Denies smoking or ETOH. REVIEW OF SYSTEMS: The patient reports easy bruising but reports no swollen glands. The patient reports no fever, no night sweats, no significant weight gain, no significant weight loss. No significant exercise tolerance. The patient reports no dry eyes, no irritation, no vision change. Patient reports no difficulty hearing and no ear pain. Patient reports no frequent nose bleeds or nose and sinus problems. Patient reports on arm pain on exertion. No shortness of breath while lying down. No history of heart murmur. Patient reports no cough, no wheezing or coughing up blood. Patient reports no abdominal pain, no vomiting. Normal appetite. No diarrhea and not vomiting blood. No nausea and no constipation. Patient reports no incontinence. No difficulty urinating. No hematuria. No increased frequency. Patient reports no muscle aches. No weakness, no arthralgias, no back pain. No swelling of the extremities. Patient reports no abnormal mole, no jaundice, no rashes. Reports no loss of consciousness. No weakness and no numbness. No seizures, dizziness, or headaches. The patient reports no depression, no sleep disturbance, feeling safe in a relationship and no alcohol abuse. Patient reports on fatigue. Reports no runny nose or sinus pressure. No itching, no hives, and no frequent sneezing. PHYSICAL EXAMINATION: CONSTITUTIONAL/GENERAL APPEARANCE: Well nourished, well developed, appears stated age. EYES: Lids and conjunctivae noninjected. No discharge. No pallor. ENT: Lips within normal limit. No cyanosis. No pallor. NECK: Carotid arteries, bilateral normal upstroke. No bruits. No thrills. No jugular venous pressure or distention. HISTORY AND PHYSICAL [id number] NOE MARTINEZ CERVICAL LYMPH NODES: Nontender. Nonenlarged. THYROID: Not enlarged. No nodules. CARDIOVASCULAR: Precordial exam, nondisplaced. No heaves or pericardial thrills. Rate and rhythm, regular. Heart sounds, normal S1, normal S2. No S3, no gallop, no rub. Systolic murmur, not heard. Diastolic murmur, not heard. RESPIRATORY: Respiratory effort, unlabored. Normal curvature. No thoracic deformity. No chest wall tenderness. Percussion, resonant. Auscultation, clear. No wheezes, no rales, no rhonchi. ABDOMEN: Soft, nondistended, nontender. No abdominal pain, no vomiting and normal appetite. MUSCULOSKELETAL: No joint tenderness, normal gait, normal tone. SKIN: Warm and dry. OVERALL IMPRESSION: 1. Unstable angina. He has class III-IV anginal symptomatology. Last cardiac intervention was . Most likely, he has recurrent hemodynamically significant coronary artery disease causing worsening LV function. We will admit him. Get an echocardiogram, proceed with coronary angiography on Tuesday a.m. 2. Congestive heart failure. At this time, we will use IV Lasix, IV dobutamine. Get an echocardiogram before the dobutamine from an accurate ejection fraction. At this time, hopefully, we will have withdrawal of the fluid off with this. Further care depends upon the results with the echo, inotropic therapy, and cardiac catheterization. TRANSINT:[id number] Voice Confirmation ID: [id number] DOCUMENT ID: [id number] JOSH SEYMOUR MD at 1318 CC: [id number] DICTATION DATE: 04/30/19 152 CLINICAL PATHOLOGIST: 04/30/19 1617 ADM IN [facility] [address] [place] [address]
--- NOTE | 2019-05-03 13:18 | EC ---
PATIENT:NOE MARTINEZ DATE OF SERVICE: 05/01/19 SEX: M MEDICAL RECORD: [id number] DATE OF : 50 LOCATION:D.M2 D.211 AGE OF PATIENT: 68 ADMISSION DATE: 05/01/19 REFERRING PHYSICIAN: INTERPRETING PHYSICIAN: JOSH CRAWFORD MD ECHOCARDIOGRAM REPORT ECHO CHARGES 5 ECHO LIMITED Date: 05/02/19 1 DOPPLER ECHO COLOR FLOW 2 DOPPLER ECHO PULSE CLINICAL DIAGNOSIS: UNSTABLE ANGINA ECHOCARDIOGRAPHIC MEASUREMENTS (adult normal given) AC root (d.<3.7cm) 0 cm LV Septum d (<1.2 cm> 0 cm Valve Excursion 0 cm LV Septum (systole) 0 cm Left Atria (s.<4.0cm> 0 cm LVPW d(<1.2cm) 0 cm RV (d.<2.3cm) 0 cm LVPW (sytole) 0 cm LV diastole(<5.6CM) 0 cm MV E-F(>70mm/sec) 0 cm LV systole 0 cm LVOT Diameter 0 cm MV exc.(>10mm) 0 cm Est.ejection fraction (50-75%) 0 % DOPPLER: LVIT 0 cm/sec A 0 cm/sec E 0 cm/sec LA 0 cm/sec RVSP 50.1 mmHg LVOT 0 cm/sec AOP1/2T 0 m/s Asc. Ao 0 cm/sec RVOT 0 cm/sec RA 0 cm/sec PA 0 cm/sec AV Gradient Peak 0 mmHg AV Mean 0 mmHg AV Area 0 cm MV Gradient Peak 0 mmHg MV Mean 0 mmHg MV Area 0 cm COMMENTS: LIMITED STUDY (2-D,COLOR,DOPPLER) COMPLETE ECHO DONE ON 03/06/19 Machine Loader: Lyndsay CRANEOE Admeasurer: 1 Dr. Crawford TAPE# PACS Pericardial Effusion N DATE OF SERVICE: 05/02/2019 Echocardiogram FINDINGS: 1. Left ventricular chamber size is dilated. Left ventricular systolic function is markedly reduced, overall ejection fraction 20%. 2. Left atrium, right atrium, and right ventricular chamber sizes are as well bqtl-us-vpvhvdxjlj dilated giving 4-chamber dilatation. 3. Valvular structures have normal structure and motion. ECHOCARDIOGRAM REPORT [id number] NOE MARTINEZ 4. Doppler interrogation reveals moderate mitral regurgitation, moderate tricuspid regurgitation, no other valvular insufficiency or stenosis. Pulmonary systolic pressure is elevated estimated at 50 mmHg. 5. No evidence of pericardial effusion or left ventricular thrombus. TRANSINT:[id number] Voice Confirmation ID: [id number] DOCUMENT ID: [id number] OJSH CRAWFORD MD at 1318 CC: [id number] DICTATION DATE: 05/02/19 162 CYBER SECURITY SPECIALIST: 05/02/19 2337 ADM IN [facility] [address] [place] [id number]
[2019-05-03 13:37] VITALS: BP 115/70
--- NOTE | 2019-05-03 16:23 | NUR ---
REVIEWED DISCHARGE INSTRUCTIONS WITH PT STATES UNDERSTANDING COPY GIVEN DCD SALINE LOCK TO RT HAND WITH IV CATHETER INTACT SITE FREE OF REDNESS OR EDEMA PT DISCHARGED HOME LEFT UNIT IN STABLE CONDITION WITH ALL PERSONAL BELONGINGS VIA W/C
--- NOTE | 2019-05-04 09:31 | MORECARE ---
CASE MANAGEMENT DISCHARGE SUMMARY PATIENT: NOE MARTINEZ UNIT: [id number] ADM DATE: 05/01/19 AGE: 68 : 50 SEX: M ROOM/BED: D.2115 AUTHOR: PAULA SANFORD PHYSICIAN: REFERRING PHYSICIAN: JOSH SEYMOUR MD DATE OF SERVICE: 05/04/19 Discharge Plan Patient Name: NOE MARTINEZ Facility: [facility]:[place] : 1950 Planned Disposition: Home Anticipated Discharge Date: 05/03/19 Discharge Date: 05/03/2019 Expected LOS: 2 Initial Reviewer: [email or web address] Initial Review Date: 05/03/2019 Generated: 05/04/19 10:31 am DCPIA - Discharge Planning Initial Assessment Updated by [email or web address]: Matt Ceron on 05/04/19 9:29 am * Is the patient Alert and Oriented? Yes * How many steps to enter\exit or inside your home? * PCP DR. BUSTAMANTE * [facility] IN [place] * Preadmission Environment Home Alone * ADLs Independent * Equipment Bedside Commode * Other Equipment NO MEDICAL EQUIPMENT PROVIDER PREFERENCE * List name and contact numbers for known caregivers / representatives who currently or will assist patient after discharge: UNCLE BRIAN, * Verbal permission to speak to the caregivers and representatives has been obtained from the patient. N/A * Community resources currently utilized None * Please name any agencies selected above. NONE * Additional services required to return to the preadmission environment? No * Can the patient safely return to the preadmission environment? Yes * Has this patient been hospitalized within the prior 30 days at any hospital? Yes Patient Name: NOE MARTINEZ Page [phone] at 0931 All edits/amendments must be made on the electronic document DICTATION DATE: 05/04/19929 ART APPRAISER: SOFIA 05/04/19929 RPT#: [id number] DC DATE:05/03/19 STATUS: DIS IN [facility] [address] [place] [address] END OF REPORT
--- NOTE | 2019-05-04 09:39 | MORECARE ---
CASE MANAGEMENT DISCHARGE SUMMARY PATIENT: NOE MARTINEZ UNIT: [id number] ADM DATE: 05/01/19 AGE: 68 : 50 SEX: M ROOM/BED: D.1757 AUTHOR: JUVENAL,DOC PHYSICIAN: REFERRING PHYSICIAN: JOSH SEYMOUR MD DATE OF SERVICE: 05/04/19 Discharge Plan Patient Name: NOE MARTINEZ Facility: [facility]:[place] : 1950 Planned Disposition: Home Anticipated Discharge Date: 05/03/19 Discharge Date: 05/03/2019 Expected LOS: 2 Initial Reviewer: [email or web address] Initial Review Date: 05/03/2019 Generated: 05/04/19 10:39 am Comments DCP- Discharge Planning Updated by [email or web address]: Matt Ceron on 05/04/19 8:[address] Patient Name: NOE MARTINEZ Admission Status: Elective Accout number: [id number] Admission Date: 05-01-2019 : 1950 Admission Diagnosis: Attending: FEI SEYMOUR Current LOS: 2 Anticipated DC Date: 05-03-2019 Planned Disposition: Home Primary Insurance: [facility] MEDICARE SOLUTIONS LATE ENTRY FROM 12-, 1430 HOURS: Discharge Planning Comments: CM MET WITH PT IN ROOM TO DISCUSS DISCHARGE PLANNING AND NEEDS. PT REPORTS LIVING AT HOME INDEPENDENTLY AND ALONE. PT HAS RUNNING WATER AT A FAUCET OUTSIDE HIS HOME. PT USES BEDSIDE COMMODE AND EMPTIES IT AT FAMILY'S HOUSE NEXT DOOR TO HIS.. PT HAS NO OUTSIDE SERVICES ASSISTING IN THE HOME. CM DISCUSSED AVAILABILITY OF HOME HEALTH, REHAB SERVICES AND MEDICAL EQUIPMENT. PT DENIES DISCHARGE NEEDS, REPORTS HIS NEPHEW WILL PICK HIM UP FOR DISCHARGE HOME. IMPORTANT MESSAGE FROM MEDICARE PROVIDED AND EXPLAINED. Hire Car Driver: Matt Ceron DCPIA - Discharge Planning Initial Assessment Updated by [email or web address]: Matt Ceron on 05/04/19 9:29 am * Is the patient Alert and Oriented? Yes * How many steps to enter\exit or inside your home? * PCP DR. BUSTAMANTE * [facility] [place] * Preadmission Environment Home Alone * ADLs Independent * Equipment Bedside Commode * Other Equipment NO MEDICAL EQUIPMENT PROVIDER PREFERENCE * List name and contact numbers for known caregivers / representatives who currently or will assist patient after discharge: UNCLE BRIAN, * Verbal permission to speak to the caregivers and representatives has been obtained from the patient. N/A * Community resources currently utilized None * Please name any agencies selected above. NONE * Additional services required to return to the preadmission environment? No * Can the patient safely return to the preadmission environment? Yes * Has this patient been hospitalized within the prior 30 days at any hospital? Yes Coverage Notice Reviewer: [id number] Avery Ceron Notice Issued Date-Time: 05/03/2019 14:30 Notice Type: IM Discharge Notice Notice Delivered To: Patient Relationship to Patient: Mini Baccarat Dealer Name: Delivery Method: HAND - Hand Delivered Heather Days: Prior Verbal Notification: Recipient Understood Notice: Yes Recipient Signature: Yes Med Rec Note Co-signed by Attending: Coverage Notice Comment: Last DP export: 05/04/19 8:31 a Patient Name: NOE MARTINEZ Page [id number] at 0939 All edits/amendments must be made on the electronic document DICTATION DATE: 05/04/19938 RAND CEMENTER: SOFIA 05/04/19938 RPT#: [id number] DC DATE:05/03/19 STATUS: DIS IN [facility] [address] [place] [address] END OF REPORT
== END 2019-05-03 17:38 | disposition home or self-care (01) | DRG 247 ==
LOC: D.SDCHOLD 12:59 → D.M2 13:01
PROVIDERS: ADMIT Internal Medicine Interventional Cardiology; ATTEND Internal Medicine Interventional Cardiology
PROC: 4A023N7 Measurement of Cardiac Sampling and Pressure, Left Heart, Percutaneous Approach (ICD-10-PCS; 2019-05-02)
PROC: B2111ZZ Fluoroscopy of Multiple Coronary Arteries using Low Osmolar Contrast (ICD-10-PCS; 2019-05-02)
PROC: B2151ZZ Fluoroscopy of Left Heart using Low Osmolar Contrast (ICD-10-PCS; 2019-05-02)
PROC: 027135Z Dilation of Coronary Artery, Two Arteries with Two Drug-eluting Intraluminal Devices, Percutaneous Approach (ICD-10-PCS; principal; 2019-05-02 10:30)
PROC: 4A033BC Measurement of Arterial Pressure, Coronary, Percutaneous Approach (ICD-10-PCS; 2019-05-02 10:30)
DX: I25.110 Atherosclerotic heart disease of native coronary artery with unstable angina pectoris (principal); I50.22 Chronic systolic (congestive) heart failure; I11.0 Hypertensive heart disease with heart failure; E11.9 Type 2 diabetes mellitus without complications; I25.5 Ischemic cardiomyopathy

== ENCOUNTER 2019-05-29 12:49 | Inpatient (IN) | payer MEDICARE, MEDICAID ==
[~2019-05-29] VITALS: Ht 172.7 cm; Wt 73.2 kg
--- NOTE | 2019-05-29 16:17 | NUR ---
OREINTED TO ROOM. CALL LIGHT IN REACH. WILL CONT. PLAN OF CARE.
[2019-05-29 17:10] VITALS: BP 130/76; BMI 28.6
--- NOTE | 2019-05-29 19:16 | NUR ---
RECEIVED BEDSIDE REPORT. PATIENT IS ALERT AND ORIENTED, RESTING COMFORTABLY IN BED. RESPIRATIONS ARE EVEN AND UNLABORED. NO S/S OF DISTRESS. NO C/O PAIN. CALL LIGHT WITHIN REACH. NEEDS MET. WILL CPOC. [facility] SEYMOUR AND DR. SALTER WERE PAGED. HAD QUALITY ASSURANCE ADVISOR SEND TEXT PAGE TO DR. SANTANA ABOUT NEW PATIENT AND NEEDING ORDERS.
[2019-05-29 20:00] VITALS: BP 124/82
--- NOTE | 2019-05-29 21:57 | NUR ---
DR SANTANA RETURNED PAGE. ORDERS GIVEN FOR A BUMEX DRIP AND LABS.
[2019-05-29 23:19] LABS: BASOPHILS 0.5 % (0-2); EOSINOPHILS 0.3 % (0-7); HEMATOCRIT 39.9 % (42.0-54.0); HEMOGLOBIN 12.7 g/dL (13.5-17.5); IMMATURE GRANULOCYTES 0.1 % (0-5); LYMPHOCYTES 9.7 % (15-50); MCH 23.2 pg (26.0-34.0); MCHC 31.8 g/dL (31.0-37.0); MCV 72.8 fL (80.0-100.0); MEAN PLATELET VOLUME 10.3 fL (7.4-10.4); MONOCYTES 10.6 % (2-11); NEUTROPHILS 78.8 % (40-80); PLATELET COUNT 456 10x3/uL (130-400); RBC 5.48 10x6/uL (4.20-6.10); RDW 18.6 % (11.5-14.5); WBC 8.8 10x3/uL (4.8-10.8)
[2019-05-30] VITALS: BP 124/88
[2019-05-30 00:12] LABS: ANION GAP 16.5 mmol/L (8-16); CALCIUM 8.6 mg/dL (8.5-10.1); CARBON DIOXIDE 22.7 mmol/L (21.0-32.0); CREATININE - SERUM 2.5 mg/dL (0.6-1.3); POTASSIUM - SERUM 5.2 mmol/L (3.5-5.1)
[2019-05-30 04:00] VITALS: BP 141/89
--- NOTE | 2019-05-30 07:15 | NUR ---
RECEIVED PT IN BED EYES CLOSED RESP UNLABORED SKIN W/D COLOR WNL GENERALIZED EDEMA NOTED TO BUE BLE NOTED WITH +3 EDEMA WILL CONTINUE TO MONITOR
[2019-05-30 08:00] VITALS: BP 135/92
[2019-05-30 11:36] VITALS: BP 141/91
[2019-05-30 16:04] VITALS: BP 134/83
[2019-05-30 20:15] VITALS: BP 129/73
--- NOTE | 2019-05-30 23:48 | NUR ---
RESTING WITH EYES CLOSED, RESPERATIONS EVEN, NO S/S DISTRESS NOTED.
[2019-05-31] VITALS (7 sets, daily range): BP systolic 108–132; BP diastolic 65–89; Ht 172.7 cm; Wt 73.2 kg
--- NOTE | 2019-05-31 01:23 | NUR ---
I have reviewed this patient and I concur with the Shift Assessment completed by the Licensed Practical Nurse today this shift.
--- NOTE | 2019-05-31 07:29 | NUR ---
ALERT AND ORIENTED. TELEMERTY SHOWS SR. O2 AT 2 LM PER NC. RIGHT ARM IV WITH BUMEX AT 10 AND DOBUTUTAMINE AT 12.2. UP AB STUART. EDEMA TO LOWER LEGS. DENIES ANY NEEDS. SR UP WITH CALL LIGHT IN REACH
--- NOTE | 2019-05-31 08:15 | NUR ---
EVENING ROUNDS COMPLETED. VSS, AAOX4, NO S/S OF DISTRESS. TRACE EDEMA IN RL. O2 @ 2L. NOEL SIMPSON PROVIDED PER PT REQUEST. PT DENIES ANY FURTHER NEEDS AT THIS TIME WILL CPOC.
--- NOTE | 2019-05-31 08:29 | NUR ---
I have reviewed this patient and I concur with the Shift Assessment completed by the Licensed Practical Nurse today this shift.
--- NOTE | 2019-05-31 10:14 | NUR ---
IV BUMEX AND DOBUTAMINE IV DCD PER ORDER. UP IN ROOM WALKING, GAIT STEADY
--- NOTE | 2019-05-31 12:05 | CN ---
PATIENT NAME:NOE MARTINEZ MEDICAL RECORD: [id number] : 50 LOCATION:D. D.2122 ADMIT DATE: 05/29/19 ACCOUNT: [id number] CONSULTING PHYSICIAN: FLIP SALTER MD REFERRING PHYSICIAN: JOSH SEYMOUR MD DATE OF CONSULTATION: 05/30/2019 HISTORY OF PRESENT ILLNESS: A 68-year-old gentleman with a history of severe cardiomyopathy, chronic renal insufficiency, presents with approximately 1-week history of progressive volume overload with nasir orthopnea, PND, lower extremity edema. He is admitted for Dobutrex and Bumex drip for volume overload, eglud-dp-ndddlld systolic heart failure. PAST MEDICAL HISTORY: Includes: 1. History of hypertension. 2. Chronic renal insufficiency. 3. Cardiomyopathy, presumed combination hypertensive and ischemic. 4. Diabetes mellitus. 5. Coronary artery disease as described above. ALLERGIES: None known. MEDICATIONS: Typically include Plavix 75 every day, metoprolol 25 every day, Lasix 20 every day, lactulose 15 mg p.o. daily, Amaryl 2 mg p.o. every day, aspirin 81 daily. SOCIAL HISTORY: Nonsmoker, nondrinker, was able to take care of his ADLs prior to current illness. No history of morbid issue as of late. REVIEW OF SYSTEMS: The patient reports easy bruising but reports no swollen glands. The patient reports no fever, no night sweats, no significant weight gain, no significant weight loss. No significant exercise tolerance. The patient reports no dry eyes, no irritation, no vision change. Patient reports no difficulty hearing and no ear pain. Patient reports no frequent nose bleeds or nose and sinus problems. Patient reports on arm pain on exertion. No shortness of breath while lying down. No history of heart murmur. Patient reports no cough, no wheezing or coughing up blood. Patient reports no abdominal pain, no vomiting. Normal appetite. No diarrhea and not vomiting blood. No nausea and no constipation. Patient reports no incontinence. No difficulty urinating. No hematuria. No increased frequency. Patient reports no muscle aches. No weakness, no arthralgias, no back pain. No swelling of the extremities. Patient reports no abnormal mole, no jaundice, no rashes. Reports no loss of consciousness. No weakness and no numbness. No seizures, dizziness, or headaches. The patient reports no depression, no sleep disturbance, feeling safe in a relationship and no alcohol abuse. Patient reports on fatigue. Reports no runny nose or sinus pressure. No itching, no hives, and no frequent sneezing. PHYSICAL EXAMINATION: GENERAL: Chronically ill-appearing, no acute distress. VITAL SIGNS: Blood pressure 141/89, pulse 80 and regular. HEENT: Normocephalic and atraumatic. NECK: No JVD, bruit. HEART: Regular. LUNGS: Diminished breath sounds at both bases with bilateral crackles. CONSULT REPORT [id number] NOE MARTINEZ ABDOMEN: Soft, nontender. EXTREMITIES: Pulses are 1+. There is 3+ edema. IMPRESSION: Kdjar-vi-rjzahhj systolic heart failure. Plan for Dobutrex as well as Bumex drip. Further recommendations based on the above. TRANSINT:[id number] Voice Confirmation ID: [id number] DOCUMENT ID: [id number] FLIP SALTER MD at 1205 CC: [id number] DICTATION DATE: 05/30/1939 GAS PIPE LAYER: 05/30/19 1108 ADM IN [place] [address] [place] [address]
[2019-06-01 04:00] VITALS: BP 116/72
--- NOTE | 2019-06-01 07:15 | NUR ---
RECEIVED PT IN BED EYES CLOSED RESP UNLABORED SKIN W/D COLOR WNL NAD NOTED
[2019-06-01 08:00] VITALS: BP 124/64
[2019-06-01 12:43] VITALS: BP 125/79
[2019-06-01 16:13] VITALS: BP 115/79
--- NOTE | 2019-06-01 19:30 | NUR ---
REPORT AND INITIAL ROUNDS COMPLETED. PT RESTING IN BED. ALERT/ORIENTED. SR PER TELEMETRY. SALINE LOCK TO RFA. CPOC. CALL LIGHT IN REACH.
[2019-06-01 20:00] VITALS: BP 134/56
[2019-06-02] VITALS: BP 132/64
[2019-06-02 04:30] VITALS: BP 150/66
[2019-06-02 07:56] VITALS: BP 132/84
[2019-06-02] MEDS ORDERED: COREG6.25 MG PO (08:32)
--- NOTE | 2019-06-02 09:18 | MORECARE ---
CASE MANAGEMENT DISCHARGE SUMMARY PATIENT: NOE MARTINEZ UNIT: [id number] ADM DATE: 05/29/19 AGE: 68 : 50 SEX: M ROOM/BED: D.2122 AUTHOR: PAULA SANFORD PHYSICIAN: REFERRING PHYSICIAN: JOSH SEYMOUR MD DATE OF SERVICE: 06/02/19 Discharge Plan Patient Name: NOE MARTINEZ Facility: [facility]:[place] : 1950 Planned Disposition: Home Anticipated Discharge Date: Discharge Date: Expected LOS: Initial Reviewer: [email or web address] Initial Review Date: 06/02/2019 Generated: 06/02/19 10:17 am Coverage Notice Reviewer: [email or web address] Avery Herron Notice Issued Date-Time: 06/02/2019 9:10 Notice Type: IM Discharge Notice Notice Delivered To: Patient Relationship to Patient: Self Cloth Layer Name: Delivery Method: HAND - Hand Delivered Heather Days: Prior Verbal Notification: Recipient Understood Notice: Yes Recipient Signature: Yes Med Rec Note Co-signed by Attending: Coverage Notice Comment: Patient Name: NOE MARTINEZ Page 11583 at 0918 All edits/amendments must be made on the electronic document DICTATION DATE: 06/02/19916 GIFT OFFICER: SOFIA 06/02/19916 RPT#: [id number] DC DATE: STATUS: ADM IN [place] [address] [place] [address] END OF REPORT
--- NOTE | 2019-06-02 09:25 | MORECARE ---
CASE MANAGEMENT DISCHARGE SUMMARY PATIENT: NOE MARTINEZ UNIT: [id number] ADM DATE: 05/29/19 AGE: 68 : 50 SEX: M ROOM/BED: D.2122 AUTHOR: PAULA SANFORD PHYSICIAN: REFERRING PHYSICIAN: JOSH SEYMOUR MD DATE OF SERVICE: 06/02/19 Discharge Plan Patient Name: NOE MARTINEZ Facility: [facility]:[place] : 1950 Planned Disposition: Home Anticipated Discharge Date: Discharge Date: Expected LOS: Initial Reviewer: [email or web address] Initial Review Date: 06/02/2019 Generated: 06/02/19 10:25 am DCPIA - Discharge Planning Initial Assessment Updated by CHAPIN: Caron Herron on 06/02/19 9:18 am * Is the patient Alert and Oriented? Yes * How many steps to enter\exit or inside your home? * PCP ROBBY * Pharm[facility] * Preadmission Environment Home Alone * ADLs Independent * Equipment None * List name and contact numbers for known caregivers / representatives who currently or will assist patient after discharge: DEBBIE MARTINEZ [facility]- [phone] * Verbal permission to speak to the caregivers and representatives has been obtained from the patient. Yes * Community resources currently utilized None * Additional services required to return to the preadmission environment? No * Can the patient safely return to the preadmission environment? Yes * Has this patient been hospitalized within the prior 30 days at any hospital? No Coverage Notice Reviewer: [email or web address] - Caron Herron Notice Issued Date-Time: 06/02/2019 9:10 Notice Type: IM Discharge Notice Notice Delivered To: Patient Relationship to Patient: Self Tree Thinner Name: Delivery Method: HAND - Hand Delivered Heather Days: Prior Verbal Notification: Recipient Understood Notice: Yes Recipient Signature: Yes Med Rec Note Co-signed by Attending: Coverage Notice Comment: Last DP export: 06/02/19 8:18 am Patient Name: NOE MARTINEZ Page 62438 at 0925 All edits/amendments must be made on the electronic document DICTATION DATE: 06/02/19924 VIOLIN RESTORER: DM 06/02/19924 RPT#: [id number] DC DATE: STATUS: ADM IN [facility] [address] [place] [address] END OF REPORT
--- NOTE | 2019-06-02 09:32 | MORECARE ---
CASE MANAGEMENT DISCHARGE SUMMARY PATIENT: NOE MARTINEZ UNIT: [id number] ADM DATE: 05/29/19 AGE: 68 : 50 SEX: M ROOM/BED: D.8532 AUTHOR: JUVENAL,DOC PHYSICIAN: REFERRING PHYSICIAN: JOSH SEYMOUR MD DATE OF SERVICE: 06/02/19 Discharge Plan Patient Name: NOE MARTINEZ Facility: [facility]:[place] : 1950 Planned Disposition: Home Anticipated Discharge Date: Discharge Date: Expected LOS: Initial Reviewer: [email or web address] Initial Review Date: 06/02/2019 Generated: 06/02/19 10:32 am Comments DCP- Discharge Planning Updated by [email or web address]: Caron Herron on 06/02/19 8:[address] Patient Name: NOE MARTINEZ Admission Status: Elective Accout number: [id number] Admission Date: 05-29-2019 : 1950 Admission Diagnosis: Attending: FEI SEYMOUR Current LOS: 4 Anticipated DC Date: Planned Disposition: Home Primary Insurance: [facility] MEDICARE SOLUTIONS Discharge Planning Comments: CM met with patient at bedside after explaining CM role and obtaining verbal consent. Patient lives at home alone where he is independent with his care and plans to return there upon discharge. Patient feels this would be a safe discharge. CM discussed availability / needs of home health and medical equipment. Patient denies any discharge needs at this time. Patient states he will have his family drive him home upon discharge. D/C IMM signed 06/02/19 @ 0910CM will continue to follow and assist as needed with discharge planning / needs. Buckle Strap Drum Operator: Caron Herron DCPIA - Discharge Planning Initial Assessment Updated by [email or web address]: Caron Herron on 06/02/19 9:18 am * Is the patient Alert and Oriented? Yes * How many steps to enter\exit or inside your home? * PCP [facility] * [facility] * Preadmission Environment Home Alone * ADLs Independent * Equipment None * List name and contact numbers for known caregivers / representatives who currently or will assist patient after discharge: DEBBIE MARTINEZ - [facility]- [phone] * Verbal permission to speak to the caregivers and representatives has been obtained from the patient. Yes * Community resources currently utilized None * Additional services required to return to the preadmission environment? No * Can the patient safely return to the preadmission environment? Yes * Has this patient been hospitalized within the prior 30 days at any hospital? No Coverage Notice Reviewer: [id number] Avery Herron Notice Issued Date-Time: 06/02/2019 9:10 Notice Type: IM Discharge Notice Notice Delivered To: Patient Relationship to Patient: Self Post Doc Fellowship Name: Delivery Method: HAND - Hand Delivered Heather Days: Prior Verbal Notification: Recipient Understood Notice: Yes Recipient Signature: Yes Med Rec Note Co-signed by Attending: Coverage Notice Comment: Last DP export: 06/02/19 8:25 am Patient Name: NOE MARTINEZ Page [id number] at 0932 All edits/amendments must be made on the electronic document DICTATION DATE: 06/02/19931 TOP PRECIPITATOR OPERATOR HELPER: SOFIA 06/02/19 0932 RPT#: [id number] DC DATE: STATUS: ADM IN [facility] [address] [place] [address] END OF REPORT
--- NOTE | 2019-06-02 09:52 | NUR ---
IV AND TELEMETRY DCD. DC PLANS GIVEN. UNDERSTANDING VOICED.
--- NOTE | 2019-06-02 11:32 | NUR ---
IV AND TELEMETRY DCD. DC PLANS GIVEN. UNDERSTANDING VOICED.
--- NOTE | 2019-06-03 10:39 | MORECARE ---
CASE MANAGEMENT DISCHARGE SUMMARY PATIENT: NOE MARTINEZ UNIT: [id number] ADM DATE: 05/29/19 AGE: 68 : 50 SEX: M ROOM/BED: D.2122 AUTHOR: JUVENALDOC PHYSICIAN: REFERRING PHYSICIAN: JOSH SEYMOUR MD DATE OF SERVICE: 06/03/19 Discharge Plan Patient Name: NOE MARTINEZ Facility: [facility]:[place] : 1950 Planned Disposition: Home Anticipated Discharge Date: Discharge Date: 06/02/2019 Expected LOS: Initial Reviewer: [email or web address] Initial Review Date: 06/02/2019 Generated: 06/03/19 11:39 am Comments DCP- Discharge Planning Updated by [email or web address]: Caron Herron on 06/02/19 8:[address] Patient Name: NOE MARTINEZ Admission Status: Elective Accout number: [id number] Admission Date: 05-29-2019 : 1950 Admission Diagnosis: Attending: FEI SEYMOUR Current LOS: 4 Anticipated DC Date: Planned Disposition: Home Primary Insurance: [facility] MEDICARE SOLUTIONS Discharge Planning Comments: CM met with patient at bedside after explaining CM role and obtaining verbal consent. Patient lives at home alone where he is independent with his care and plans to return there upon discharge. Patient feels this would be a safe discharge. CM discussed availability / needs of home health and medical equipment. Patient denies any discharge needs at this time. Patient states he will have his family drive him home upon discharge. D/C IMM signed 06/02/19 @ 0910CM will continue to follow and assist as needed with discharge planning / needs. Wind Turbine Controls Engineer: Caron Herron DCPIA - Discharge Planning Initial Assessment Updated by [email or web address]: Caron Herron on 06/02/19 9:18 am * Is the patient Alert and Oriented? Yes * How many steps to enter\exit or inside your home? * PCP [facility] * [facility] * Preadmission Environment Home Alone * ADLs Independent * Equipment None * List name and contact numbers for known caregivers / representatives who currently or will assist patient after discharge: DEBBIE MARTINEZ - BROTHER- [phone] * Verbal permission to speak to the caregivers and representatives has been obtained from the patient. Yes * Community resources currently utilized None * Additional services required to return to the preadmission environment? No * Can the patient safely return to the preadmission environment? Yes * Has this patient been hospitalized within the prior 30 days at any hospital? No Coverage Notice Reviewer: [id number] Avery Herron Notice Issued Date-Time: 06/02/2019 9:10 Notice Type: IM Discharge Notice Notice Delivered To: Patient Relationship to Patient: Self Physical Chemistry Teacher Name: Delivery Method: HAND - Hand Delivered Heather Days: Prior Verbal Notification: Recipient Understood Notice: Yes Recipient Signature: Yes Med Rec Note Co-signed by Attending: Coverage Notice Comment: Last DP export: 06/02/19 8:32 am Patient Name: NOE MRATINEZ Page [id number] at 1039 All edits/amendments must be made on the electronic document DICTATION DATE: 06/03/19 1039 SUPERVISOR WET END: SOFIA 06/03/19 1039 RPT#: [id number] DC DATE:06/02/19 STATUS: DIS IN [facility] [address] [place] [address] END OF REPORT
== END 2019-06-02 11:33 | disposition home or self-care (01) | DRG 291 ==
LOC: D.M2 12:49
PROVIDERS: Internal Medicine Interventional Cardiology; ADMIT Internal Medicine Interventional Cardiology; ATTEND Internal Medicine Interventional Cardiology
DX: I13.0 Hypertensive heart and chronic kidney disease with heart failure and stage 1 through stage 4 chronic kidney disease, or unspecified chronic kidney disease (principal); I50.23 Acute on chronic systolic (congestive) heart failure; E11.22 Type 2 diabetes mellitus with diabetic chronic kidney disease; N18.9 Chronic kidney disease, unspecified